=== PATIENT | female | born 1935 | race Caucasian/White ===

== ENCOUNTER 2019-09-10 14:02 | Observation (INO) | payer MEDICARE, OTHER, SELFPAY ==
[2019-09-10] VITALS (7 sets, daily range): BP systolic 145–198; BP diastolic 64–82; PULSE 51–81; RESP 15–18; TEMP 36.6–36.7; O2SAT 96–100; BMI 25.7
--- NOTE | 2019-09-10 14:18 | DI.CT.S_ITS ---
PROCEDURE: CT STROKE INDICATIONS: transient altered mental status, now resolved. TECHNIQUE: Noncontrast 4.5 mm thick angled axial sections acquired from the foramen magnum to the vertex, with coronal reformats. For radiation dose reduction, the following was used: automated exposure control, adjustment of mA and/or kV according to patient size. COMPARISON: None. FINDINGS: Image quality: Excellent. CSF spaces: Basal cisterns are patent. No extra-axial fluid collections. The ventricles are symmetric in size and shape. Brain: No intracranial bleeds or masses. There is cerebral volume loss for age, with resultant ventricular and sulcal prominence. There are periventricular and deep white matter chronic small vessel ischemic changes. There is intracranial internal carotid artery atherosclerosis. Skull and face: Calvarium and visualized facial bones appear intact, without suspicious lesions. Sinuses: Visualized sinuses and mastoids are clear. IMPRESSION: Unremarkable intracranial study for age, with brain parenchymal volume loss and chronic small vessel ischemic change seen. No acute intracranial hemorrhage is seen. If there is strong clinical suspicion for an acute stroke, please consider an MRI for further evaluation, as it is more sensitive (assuming that there is no contraindication to MRI). This study fulfills neurological imaging criteria for inclusion or exclusion of acute stroke therapies based on available published neurological guidelines. Dictated by: Ministerio Benedict M.D. on 09/10/2019 at 13:54 Approved by: Ministerio Benedict M.D. on 09/10/2019 at 13:55
[2019-09-10 14:26] LABS: Add Manual Diff / Slide Review NO; Basophils Absolute Auto 100 /uL (0-100); Basophils Percent Auto 0.9 % (0-2); Eosinophils Absolute Auto 200 /uL (0-450); Eosinophils Percent Auto 2.4 % (2-4); Hematocrit 37.3 % (36-46); Hemoglobin 12.5 g/dL (12.0-16.0); Lymphocytes Absolute Auto 2800 /uL (1100-4500); Lymphocytes Percent Auto 36.1 % (25-40); Mean Corpuscular HGB Conc 33.4 % (30-36); Mean Corpuscular Hemoglobin 29.4 PG (26-34); Mean Corpuscular Volume 88.1 fL (80-100); Monocytes Absolute Auto 800 /uL (0-900); Monocytes Percent Auto 10.6 % (3-14); Neutrophils Absolute Auto 3900 /uL (1500-7000); Platelet Count 329 X10^3/uL (150-400); Red Blood Cell Count 4.23 X10^6/uL (4.0-5.2); Red Cell Distribution Width 15.2 % (11.6-14.8); White Blood Cell Count 7.7 X10^3/uL (4.5-11.0)
[2019-09-10 14:29] LABS: Prothrombin Time 11.8 SECONDS (10.1-12.7)
[2019-09-10 14:32] LABS: PTT Partial Thromboplastin Tim 28 SECONDS (26.4-36.2)
[2019-09-10 14:34] LABS: Alanine Aminotransferase 12 IU/L (<35); Albumin 4.4 g/dL (3.5-5.0); Albumin Globulin Ratio 1.5 (1.0-2.8); Alkaline Phosphatase 50 U/L (38-126); Aspartate Aminotransferase 19 IU/L (14-36); BUN Creatinine Ratio 28.8 (6-22); Bilirubin Total 0.4 mg/dL (0.2-1.3); Blood Urea Nitrogen 21 mg/dL (7-17); Calcium 9.6 mg/dL (8.4-10.2); Carbon Dioxide 23 mmol/L (22-32); Chloride 104 mmol/L (98-107); Creatine Kinase 43 U/L (30-135); Estimated Glomerular Filt Rate > 60.0 mL/min (>60); Ethanol (ETOH) < 10 mg/dL; Globulin 2.9 g/dL (1.7-4.1); Glucose 98 mg/dL (80-110); HEMOLYSIS < 15 (0-50); Potassium 4.3 mmol/L (3.4-5.1); Sodium 137 mmol/L (137-145); Total Protein 7.3 g/dL (6.3-8.2)
--- NOTE | 2019-09-10 14:34 | ED_ITS ---
HPI - Neuro Symptoms/Deficit General Chief Complaint: Neuro Symptoms/Deficit Stated Complaint: loss of consciousness, uncontrolled talking Time Seen by Provider: 09/10/19 14:11 Source: patient Mode of arrival: Ambulatory History of Present Illness HPI Narrative: CC: I think I may have had a stroke. HPI: The patient was [place] with her on the highway and she suddenly did not respond to her was staring straight ahead and started talking in O[place]i and was unable to talk in Arabic-speaking or. From what she was doing. This entire episode lasted approximately 20 minutes. It happened approximately 30 minutes prior to coming into the emergency department. The patient denied any loss of consciousness. She has no history of having had seizures previous stroke myocardial infarction congestive heart failure COPD or asthma. She does admit to a history of diabetes mellitus and hypertension. She is on metformin for her diabetes. The patient stated that she also felt like she lost her voice and could not speak. She denied any chest pain irregular heartbeat or palpitations when this occurred. This is never happened to her before. She admits to being a former smoker does not drink alcohol use any drugs or use marijuana.. On Anticoagulants: No Related Data Home Medications Medication Instructions Recorded Confirmed ezetimibe-simvastatin 1 tab PO QPM 09/10/19 09/10/19 hydrochlorothiazide 25 mg DAILY 09/10/19 09/10/19 lisinopril 10 mg PO QAM 09/10/19 09/10/19 metformin 500 mg PO TID 09/10/19 09/10/19 metoprolol tartrate 25 mg PO BID 09/10/19 09/10/19 potassium chloride [Klor-Con 10] 10 meq PO DAILY 09/10/19 09/10/19 Allergies Allergy/AdvReac Type Severity Reaction Status Date / Time Penicillins Allergy Intermediate Rash Verified 09/11/19 07:22 Review of Systems Review of Systems Narrative: REVIEW OF SYSTEMS: CONSTITUTIONAL: She denies any fever chills or sweats. NEUROLOGICAL: She denies any history of seizures any headache numbness tingling paresthesias anesthesia is paresis or paralysis. She has had no loss of vision blind spots diplopia. EENT: She has had no nasal drainage sinus drainage or trouble swallowing. CARDIO-PULMONARY: She denies any shortness of breath cough chest pain Musculoskeletal: She denies any back pain. Gastrointestinal: She denies any abdominal pain nausea vomiting diarrhea change in bowel habits incontinence of urine or stool. Genital-Urinary: She denies any vaginal bleeding troubles urinating Dermatological: She denies any bleeding abnormalities bruising or rash. Patient History Surgical History H/O hysterectomy with oophorectomy (Acute) Family History Mother Old age Father Alcoholic dependence syndrome Social History household members: spouse Smoking Status: Former smoker alcohol intake: former Smoking Status: Former smoker Exam Narrative Exam Narrative: PHYSICAL EXAM: CONSTITUTIONAL: Awake, Alert, Oriented, Coherent, Cooperative in NAD. Does not appear toxic or ill. She appears to be embarrassed and angry that we are evaluating her and that this has occurred and she has to answer so many questions. HEAD: AT/NC EENT: PERRL, FROM of eyes, no discharge, no nystagmus no focal facial asymmetry. NOSE:No epistaxis or nasal drainage MOUTH:Oral mucosa is moist and pink, .. NECK: Supple, no obvious JVD, Trachea is midline without stridor, no palpable LN. SPINE: Palpationof the cervical, Thoracic, Lumbar or Sacral spine reveals no gross deformity or tenderness. No CVA tenderness. THORAX: No deformity, retractions, chest wall tenderness. LUNGS: Clear, symmetrical breath sounds without respiratory distress. HEART: Normal heart tones, regular rhythm and rate without murmur. ABDOMEN: Soft, non-tender, without guarding, rebound, rigidity or palpable mass. EXTREMITIES: No edema, deformity, tenderness or cyanosis. SKIN: No rash, bruising, petechiae or purpura. NEURO: Awake, alert, oriented, conversive, cranial nerves II-XII are symmetrical , moves all 4 extremities and is ambulatory. The patient has symmetrical strength symmetrical sensation no drift. No focal facial asymmetry, visual merchant are intact no slurred speech. The patient's NIH stroke scale on admission is 0 MENTAL HEALTH: Does not appear anxious or depressed. Initial Vital Signs Initial Vital Signs: Vital Signs Temperature 98.0 F 09/10/19 14:13 Pulse Rate 51 L 09/10/19 14:13 Respiratory Rate 18 09/10/19 14:13 Blood Pressure 198/82 H 09/10/19 14:13 Pulse Oximetry 100 09/10/19 14:13 Scores NIH Stroke Scale Level of Conciousness: Alert, keenly responsive Ask month/age: Answers both questions correctly. Open/close eyes, close hand: Performs both tasks correctly Best gaze horizontal: Normal Visual merchant: No visual loss Facial palsy: Normal symetrical movement Left arm drift: No drift for full 10 sec Right arm drift: No drift for full 10 sec Left leg drift: No drift for full 10 sec Right leg drift: No drift for full 10 sec Limb ataxia: Absent Sensory on face/arms/legs: Normal, no sensory loss Best language: No aphasia, normal Dysarthria: Normal Extinction or inattention: No abnormality Total NIH Stroke scale score: 0 Course Course Course Narrative: 3180: I discussed the patient with the hospitalist on-call. The patient's CT scan reveals no acute intracranial hemorrhage or pathology. The question is whether not the patient is having a TIA or a seizure. I informed the patient that her studies are normal but Dr. De La Torre suggested that I discussed the patient with the neurologist on-call at [facility] to get their recommendations. The patient may need to be admitted to the hospital for an MRI and vascular studies and possible EEG. The question is does the patient need to be admitted to perform these tests or can they be performed as an outpatient. The patient was informed,that we are sending all the information to [facility] neurologist to obtain their recommendations. 1715: I discussed the patient with Dr. Yannick Suarez the neurologist on-call at [facility] for a consult and he recommended that the patient be admitted to the hospital an MRI obtained, vascular studies obtained, monitoring of the patient, echocardiogram, and possible EEG. This may be an episode of hypoperfusion, possible seizure possible TIA. The patient at her age should be monitored observation status at minimum and further evaluated. The patient will be admitted observation status to Orders Ordered: Discontinued Medications Acetaminophen (Tylenol) 650 mg PO Q6HR PRN PRN Reason: Fever/Mild Pain (1-3) Dextrose (D50w) 25 gm IV PRN PRN; Protocol PRN Reason: Hypoglycemia Ezetimibe (Zetia) 10 mg PO BEDTIME QUE Last Admin: 09/10/19 20:57 Dose: Not Given Documented by: MARY ALICE Enoxaparin Sodium (Lovenox) 40 mg SUBCUT DAILY [facility] Last Admin: 09/11/19 08:05 Dose: 40 mg Documented by: NATASHA Hydrochlorothiazide (Hydrochlorothiazide) 25 mg PO DAILY [facility] Last Admin: 09/11/19 08:05 Dose: 25 mg Documented by: NATASHA Insulin Aspart (Novolog Flexpen) 0 unit SUBCUT ACHS [facility]; Protocol Last Admin: 09/11/19 16:55 Dose: Not Given Documented by: Admin: 09/11/19 12:25 Dose: Not Given Documented by: Admin: 09/11/19 08:05 Dose: Not Given Documented by: Admin: 09/10/19 20:56 Dose: Not Given Documented by: MARY ALICE Lisinopril (Zestril) 10 mg PO DAILY [facility] Last Admin: 09/11/19 08:05 Dose: 10 mg Documented by: NATASHA Magnesium Hydroxide (Milk Of Magnesia) 30 ml PO DAILY PRN PRN Reason: Constipation Metformin HCl (Glucophage) 500 mg PO TID [facility] Last Admin: 09/11/19 08:06 Dose: 500 mg Documented by: Admin: 09/10/19 20:20 Dose: 500 mg Documented by: MARY ALICE Metformin HCl (Glucophage) 500 mg PO TIDWM [facility] Last Admin: 09/11/19 16:55 Dose: 500 mg Documented by: Admin: 09/11/19 12:25 Dose: 500 mg Documented by: NATASHA Metoprolol Tartrate (Lopressor) 25 mg PO BID [facility] Last Admin: 09/11/19 08:05 Dose: 25 mg Documented by: Admin: 09/10/19 20:20 Dose: 25 mg Documented by: MARY ALICE Ondansetron HCl (Zofran) 4 mg IV Q8HR PRN PRN Reason: Nausea And Vomiting Potassium Chloride (Klor-Con M10) 10 meq PO DAILY [facility] Last Admin: 09/11/19 08:05 Dose: 10 meq Documented by: NATASHA Simvastatin (Zocor) 40 mg PO BEDTIME [facility] Last Admin: 09/10/19 20:20 Dose: 40 mg Documented by: MARY ALICE Vital Signs Vital signs: Vital Signs - 8 hr 09/10/19 14:13 09/10/19 14:36 Temperature 98.0 F Pulse Rate 51 L 57 L Respiratory Rate 18 15 Blood Pressure 198/82 H Blood Pressure [Left Arm] 182/74 H Pulse Oximetry 100 100 MDM - Neuro Symptoms/Deficit Medical Records Attestation: I reviewed the patient's medical records. Lab Data Attestation: I reviewed the patient's lab results. Result diagrams: 09/10/19 14:16 09/10/19 14:16 Labs: Lab Results 09/10/19 09/10/19 09/10/19 Range/Units 14:16 14:16 14:16 WBC 7.7 (4.5-11.0) X10^3/uL RBC 4.23 (4.0-5.2) X10^6/uL Hgb 12.5 (12.0-16.0) g/dL Hct 37.3 (36-46) % MCV 88.1 (80-100) fL MCH 29.4 (26-34) PG MCHC 33.4 (30-36) % RDW 15.2 H (11.6-14.8) % Plt Count 329 (150-400) X10^3/uL Neut % (Auto) 50.0 (50-75) % Lymph % (Auto) 36.1 (25-40) % [place] % (Auto) 10.6 (3-14) % Eos % (Auto) 2.4 (2-4) % Baso % (Auto) 0.9 (0-2) % Neut # (Auto) 3900 (6207-4576) /uL Lymph # (Auto) 2800 (8943-6546) /uL [place] # (Auto) 800 (0-900) /uL Eos # (Auto) 200 (0-450) /uL Baso # (Auto) 100 (0-100) /uL PT 11.8 (10.1-12.7) SECONDS INR 1.0 (0.9-1.3) APTT 28 (26.4-36.2) SECONDS Sodium 137 (137-145) mmol/L Potassium 4.3 (3.4-5.1) mmol/L Chloride 104 (98-107) mmol/L Carbon Dioxide 23 (22-32) mmol/L BUN 21 H (7-17) mg/dL Creatinine 0.73 (0.52-1.04) mg/dL Estimated GFR > 60.0 (>60) mL/min BUN/Creatinine Ratio 28.8 H (6-22) Glucose 98 (80-110) mg/dL Calcium 9.6 (8.4-10.2) mg/dL Total Bilirubin 0.4 (0.2-1.3) mg/dL AST 19 (14-36) IU/L ALT 12 (<35) IU/L Alkaline Phosphatase 50 (38-126) U/L Total Creatine Kinase 43 (30-135) U/L CK-MB (CK-2) TNP CK-MB (CK-2) Rel Index TNP Troponin I < 0.012 (0.01-0.034) ng/mL Total Protein 7.3 (6.3-8.2) g/dL Albumin 4.4 (3.5-5.0) g/dL Globulin 2.9 (1.7-4.1) g/dL Albumin/Globulin Ratio 1.5 (1.0-2.8) Prolactin (3.0-18.6) ng/mL Urine Color Urine Appearance Urine pH (4.5-8.0) Ur Specific [place] (1.000-1.035) Urine Protein (Negative) Urine Glucose (UA) (Negative) g/dL Urine Ketones (NEGATIVE) Urine Occult Blood (Negative) Urine Nitrate (Negative) Urine Bilirubin (NEGATIVE) Urine Urobilinogen (0.2) E.U./dL Ur Leukocyte Esterase (NEGATIVE) Urine RBC (0-5/HPF) Urine WBC (0-5/HPF) Ur Squamous Epith Cells (0-5/HPF) Urine Bacteria (None) Ur Culture Indicated? U Opiates 300ng/mL cut (Negative) Ur Oxycodone Screen (Negative) Urine Methadone Screen (Negative) Ur Barbiturates Screen (Negative) U Tricyclic Antidepress (Negative) Ur Phencyclidine Scrn (Negative) Ur Amphetamines Screen (Negative) U Methamphetamines Scrn (Negative) Ur MDMA Scrn (Ecstasy) (Negative) U Benzodiazepines Scrn (Negative) Urine Cocaine Screen (Negative) U Marijuana (THC) Screen (Negative) Ethyl Alcohol < 10 ( - 10) mg/dL 09/10/19 09/10/19 09/10/19 Range/Units 14:16 15:55 15:55 WBC (4.5-11.0) X10^3/uL RBC (4.0-5.2) X10^6/uL Hgb (12.0-16.0) g/dL Hct (36-46) % MCV (80-100) fL MCH (26-34) PG MCHC (30-36) % RDW (11.6-14.8) % Plt Count (150-400) X10^3/uL Neut % (Auto) (50-75) % Lymph % (Auto) (25-40) % [place] % (Auto) (3-14) % Eos % (Auto) (2-4) % Baso % (Auto) (0-2) % Neut # (Auto) (2236-3894) /uL Lymph # (Auto) (4565-2147) /uL [place] # (Auto) (0-900) /uL Eos # (Auto) (0-450) /uL Baso # (Auto) (0-100) /uL PT (10.1-12.7) SECONDS INR (0.9-1.3) APTT (26.4-36.2) SECONDS Sodium (137-145) mmol/L Potassium (3.4-5.1) mmol/L Chloride (98-107) mmol/L Carbon Dioxide (22-32) mmol/L BUN (7-17) mg/dL Creatinine (0.52-1.04) mg/dL Estimated GFR (>60) mL/min BUN/Creatinine Ratio (6-22) Glucose (80-110) mg/dL Calcium (8.4-10.2) mg/dL Total Bilirubin (0.2-1.3) mg/dL AST (14-36) IU/L ALT (<35) IU/L Alkaline Phosphatase (38-126) U/L Total Creatine Kinase (30-135) U/L CK-MB (CK-2) CK-MB (CK-2) Rel Index Troponin I (0.01-0.034) ng/mL Total Protein (6.3-8.2) g/dL Albumin (3.5-5.0) g/dL Globulin (1.7-4.1) g/dL Albumin/Globulin Ratio (1.0-2.8) Prolactin 15.6 (3.0-18.6) ng/mL Urine Color Yellow Urine Appearance Clear Urine pH 5.0 (4.5-8.0) Ur Specific [place] 1.025 (1.000-1.035) Urine Protein Negative (Negative) Urine Glucose (UA) Negative (Negative) g/dL Urine Ketones Negative (NEGATIVE) Urine Occult Blood Negative (Negative) Urine Nitrate Negative (Negative) Urine Bilirubin Negative (NEGATIVE) Urine Urobilinogen 0.2 (0.2) E.U./dL Ur Leukocyte Esterase Negative (NEGATIVE) Urine RBC 0-1/hpf (0-5/HPF) Urine WBC 0-1/hpf (0-5/HPF) Ur Squamous Epith Cells 1-5 /hpf (0-5/HPF) Urine Bacteria None seen (None) Ur Culture Indicated? Cult not indicated U Opiates 300ng/mL cut Negative (Negative) Ur Oxycodone Screen Negative (Negative) Urine Methadone Screen Negative (Negative) Ur Barbiturates Screen Negative (Negative) U Tricyclic Antidepress Negative (Negative) Ur Phencyclidine Scrn Negative (Negative) Ur Amphetamines Screen Negative (Negative) U Methamphetamines Scrn Negative (Negative) Ur MDMA Scrn (Ecstasy) Negative (Negative) U Benzodiazepines Scrn Negative (Negative) Urine Cocaine Screen Negative (Negative) U Marijuana (THC) Screen Negative (Negative) Ethyl Alcohol ( - 10) mg/dL ECG Data Attestation: I personally reviewed and interpreted this ECG as follows: Interpretation: The patient's EKG reveals a sinus bradycardia with a ventricular rate of 58 at 2:20 p.m.. Intervals appear to be normal except the QRS is slightly prolonged at 128 milliseconds. The patient has a left axis deviation. Her EKG is consistent with a left bundle branch block. There are no acute diagnostic ST segments signs no Sgarboza criteria. Discharge Plan Departure Patient Disposition: Admitted as Observation Clinical Impression: Essential hypertension Transient cerebral ischemia Qualifiers: Transient cerebral ischemia type: unspecified Qualified Code(s): G45.9 - Transient cerebral ischemic attack, unspecified Type II diabetes mellitus Qualifiers: Diabetes mellitus superintendent terminal insulin use: without superintendent terminal use Diabetes mellitus complication status: without complication Qualified Code(s): E11.9 - Type 2 diabetes mellitus without complications Discharge Date/Time: 09/10/19 17:45 Instructions: Diabetes and Cardiovascular Disease: What's the Link?, Reducing Your Risk of Heart Disease When You Have Diabetes, Transient Ischemic Attack, Type 2 Diabetes, DI for Transient Ischemic Attack Admit Date/Time: 09/10/19 17:12 Admit Provider: Romero De La Torre
[2019-09-10 14:45] LABS: Troponin I < 0.012 ng/mL (0.01-0.034)
[2019-09-10 14:50] LABS: Prolactin 15.6 ng/mL (3.0-18.6)
[2019-09-10 16:02] LABS: Ur Creatinine Normal (Normal); Ur Specific Gravity Normal (Normal); Urine pH Normal (Normal)
[2019-09-10 16:03] LABS: UR Morphine/Opiate cutoff 300 Negative (Negative); Urine Amphetamines Negative (Negative); Urine Barbiturates Negative (Negative); Urine Benzodiazepines Negative (Negative); Urine Cocaine Negative (Negative); Urine MDMA Negative (Negative); Urine Methadone Negative (Negative); Urine Methamphetamines Negative (Negative); Urine Oxycodone Negative (Negative); Urine Phencyclidine Negative (Negative); Urine Tetrahydrocannabinol Negative (Negative); Urine Tricyclic Antidepressant Negative (Negative)
[2019-09-10 17:18] LABS: Bacteria Urine None Seen
[2019-09-10 17:27] LABS: Appearance Urine UA CLEAR; Bilirubin Urine UA NEGATIVE (NEGATIVE); Color Urine UA YELLOW; Glucose Urine UA NEGATIVE (Negative); Ketones Urine UA NEGATIVE (NEGATIVE); Leukocyte Esterase Urine UA NEGATIVE (NEGATIVE); Nitrite Urine UA NEGATIVE (Negative); Occult Blood Urine UA NEGATIVE (Negative); Protein Urine UA NEGATIVE (Negative); Specific Gravity Urine UA 1.025 (1.000-1.035); Urobilinogen Urine UA 0.2 E.U./dL (0.2)
[2019-09-10 17:33] LABS: Culture Indicated Urine Cult Not Indicated; RBC Urine 0-1/HPF (0-5/HPF); Squamous Epithelial Cell Urine 1-5 /HPF (0-5/HPF); WBC Urine 0-1/HPF (0-5/HPF)
--- NOTE | 2019-09-10 18:33 | DI.MRI.S_ITS ---
PROCEDURE: MR STROKE Pre- and post-contrast brain MRI, non-contrast brain MR angiogram, pre- and postcontrast neck MR angiogram INDICATIONS: r/o CVA, brain lesion TECHNIQUE: Brain: Noncontrast axial T1 spin echo, axial T2 fast spin echo, sagittal and axial FLAIR, coronal T2 fast spin echo, axial gradient echo, axial diffusion and ADC through the brain. After the administration of contrast, axial 3D VIBE of the cranial vasculature and brain. Brain MRA: Non-contrast 3-D time of flight MR angiogram, with multiple bvknyyb-ncfpzdebj-gqtkboiznc (MIP) reformats performed. Neck MRA: Axial and sagittal TruFISP through the neck. Coronal dynamic MR angiogram during administration of contrast in the arterial and venous phases, with 3-dimenstional vewelwg-nbajwtsff-frhbrrjlyf (MIP) reformats constructed from subtraction images. COMPARISON: [facility], CT, CT STROKE, 09/10/2019, 14:33. FINDINGS: Image quality: Significant motion artifacts are present. BRAIN: CSF spaces: Ventricles are normal in size and shape. Basal cisterns are patent. No extra-axial fluid collections. Brain: No intracranial bleeds or mass effects. Basilio-white matter interface is normal. There is mild cerebral volume loss. Mild periventricular white matter chronic small vessel ischemic changes are noted. Diffusion weighted images show no acute ischemic insults. Brainstem appears normal. Normal intravascular flow voids are present. No abnormal intracranial enhancement. Skull and face: Calvarial marrow signal is normal. Orbits appear normal. Sinuses: Sinuses and mastoids are clear. BRAIN MR ANGIOGRAM: Anterior circulation: Intracranial internal carotid arteries are normal in size and enhancement. The flow within the paired anterior cerebral arteries is normal and symmetric. The flow within the middle cerebral arteries is normal and symmetric. The anterior communicating artery is seen. No stenoses, occlusions, or aneurysms. Posterior circulation: The visualized portions of the vertebral arteries demonstrate normal caliber.Possible fenestrated basilar artery. On the contrast enhanced MRA of the neck, cannot confirm fenestration of basilar artery. origin of the left posterior cerebral artery. The flow within the posterior cerebral arteries is normal and symmetric. No stenoses, occlusions, or aneurysms. NECK MR ANGIOGRAM: Carotids: Great vessels demonstrate a conventional anatomy as they arise from the aortic arch. The origins of the common carotid arteries appear patent. The calibers and courses of both common carotid arteries are normal. The bifurcation regions appear normal bilaterally. The internal carotid arteries demonstrate normal course and caliber. Posterior circulation: The origins of the vertebral arteries appear patent. More superior portions of both vertebral arteries demonstrate normal course and caliber, and join to form a normal appearing basilar artery. Miscellaneous: Subclavian arteries appear patent. Pre-contrast images through the neck show no soft tissue abnormalities. IMPRESSION: BRAIN MRI: 1. No acute intracranial abnormalities. 2. Cerebral volume loss and chronic microvascular ischemic changes. BRAIN MR ANGIOGRAM: 1. No high-grade stenosis or occlusion in anterior or posterior circulations. 2. Possible fenestrated basilar artery versus artifacts. 3. origin of the left posterior cerebral artery. NECK MR ANGIOGRAM: Normal neck MR angiogram. Dictated by: Mitzi Castle M.D. on 09/11/2019 at 15:57 Approved by: Mitzi Castle M.D. on 09/11/2019 at 16:14
--- NOTE | 2019-09-10 19:44 | P.HP_ITS ---
History of Present Illness History of Present Illness Date Patient Seen: 09/10/19 Time Patient Seen: 19:30 Date of Onset of Symptoms: 09/10/19 Chief complaint: loss of consciousness, uncontrolled talking Narrative: Hortensia Holley is a very pleasant 83-year-old female who was in her usual state of health today and a passenger while in a vehicle with her , was observed to be speaking in Citizen Of [place], her [place] language. Patient only recalls that her was telling her to speak Swazi and that she was speaking in a very low voice. She denies any visual changes, headaches, fever, sweats or chills, dizziness, nausea or vomiting, she does have a history of diabetes that is well controlled, denies difficulty swallowing, denies abdominal pain, dysuria, chest pain, shortness of breath, or diabetic polyneuropathy of her extremities. She denies starting or stopping any prescription medications, has denied past history of having a stroke or TIA. 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 By the time she reached the floor, she had a NIH score of 0. Patient History Surgical History H/O hysterectomy with oophorectomy (Acute) Family & Social History Family History Mother Old age Father Alcoholic dependence syndrome Social History: household members spouse Prior Living Arrangements House Safety & Behavioral: Feels Safe in Current Yes Environment Been Physically Hurt or No Threatened By a Person Suicidal Ideation Description None Suicide Plan Description No Plan Tobacco & Substance use: Tobacco type cigarettes Smoking Status Former smoker alcohol intake former Meds Home Medications and Allergies Home Medications Medication Instructions Recorded Confirmed Type ezetimibe-simvastatin 1 tab PO QPM 09/10/19 09/10/19 History hydrochlorothiazide 25 mg DAILY 09/10/19 09/10/19 History lisinopril 10 mg PO QAM 09/10/19 09/10/19 History metformin 500 mg PO TID 09/10/19 09/10/19 History metoprolol tartrate 25 mg PO BID 09/10/19 09/10/19 History potassium chloride [Klor-Con 10] 10 meq PO DAILY 09/10/19 09/10/19 History Allergies Allergy/AdvReac Type Severity Reaction Status Date / Time Penicillins AdvReac Severe Rash Verified 09/10/19 20:12 Review of Systems Review of Systems ROS: Yes All systems reviewed with the patient and are negative except as otherwise documented Exam Vital Signs (past 8 hours): - 09/10/19 14:13 09/10/19 14:36 09/10/19 15:45 Temperature 98.0 F Pulse Rate 51 L 57 L 57 L Respiratory Rate 18 15 18 Blood Pressure 198/82 H Blood Pressure [Left Arm] 182/74 H 145/64 H Pulse Oximetry 100 100 96 09/10/19 17:21 09/10/19 18:16 09/10/19 18:32 Temperature 97.8 F Pulse Rate 64 81 Respiratory Rate 18 18 Blood Pressure 149/80 H Blood Pressure [Left Arm] 147/69 H Pulse Oximetry 98 99 99 Oxygen Delivery Method Room Air Narrative Exam Narrative: Gen: Alert, oriented, well-developed 83 y.o. female, appears comfortable and reading HEENT: normocephalic, atraumatic, conjunctiva clear, sclera non-icteric, oral mucosa pink and moist Neck: supple, full ROM, no JVD, trachea is midline Resp: Lungs CTA, non-labored breathing CV: RRR, no murmur or rubs Abd: soft, non-tender, normoactive BTs Skin: no lesions or rashes, dry and intact Neuro: Alert and oriented X 4 w/no focal deficits. Speech is clear and coherent. Extremities: moves all 4 extremities, is ambulatory, negative Pari?s sign Psyche: normal mood and affect. Objective Labs Result Diagrams: 09/10/19 14:16 09/10/19 14:16 Labs: Laboratory Results - last 24 hr 09/10/19 09/10/19 09/10/19 14:16 14:16 14:16 WBC 7.7 RBC 4.23 Hgb 12.5 Hct 37.3 MCV 88.1 MCH 29.4 MCHC 33.4 RDW 15.2 H Plt Count 329 Neut % (Auto) 50.0 Lymph % (Auto) 36.1 Linn % (Auto) 10.6 Eos % (Auto) 2.4 Baso % (Auto) 0.9 Neut # (Auto) 3900 Lymph # (Auto) 2800 Linn # (Auto) 800 Eos # (Auto) 200 Baso # (Auto) 100 PT 11.8 INR 1.0 APTT 28 Sodium 137 Potassium 4.3 Chloride 104 Carbon Dioxide 23 BUN 21 H Creatinine 0.73 Estimated GFR > 60.0 BUN/Creatinine Ratio 28.8 H Glucose 98 Calcium 9.6 Total Bilirubin 0.4 AST 19 ALT 12 Alkaline Phosphatase 50 Total Creatine Kinase 43 CK-MB (CK-2) TNP CK-MB (CK-2) Rel Index TNP Troponin I < 0.012 Total Protein 7.3 Albumin 4.4 Globulin 2.9 Albumin/Globulin Ratio 1.5 Prolactin Urine Color Urine Appearance Urine pH Ur Specific Stafford Urine Protein Urine Glucose (UA) Urine Ketones Urine Occult Blood Urine Nitrate Urine Bilirubin Urine Urobilinogen Ur Leukocyte Esterase Urine RBC Urine WBC Ur Squamous Epith Cells Urine Bacteria Ur Culture Indicated? U Opiates 300ng/mL cut Ur Oxycodone Screen Urine Methadone Screen Ur Barbiturates Screen U Tricyclic Antidepress Ur Phencyclidine Scrn Ur Amphetamines Screen U Methamphetamines Scrn Ur MDMA Scrn (Ecstasy) U Benzodiazepines Scrn Urine Cocaine Screen U Marijuana (THC) Screen Ethyl Alcohol < 10 09/10/19 09/10/19 09/10/19 14:16 15:55 15:55 WBC RBC Hgb Hct MCV MCH MCHC RDW Plt Count Neut % (Auto) Lymph % (Auto) [place]inn % (Auto) Eos % (Auto) Baso % (Auto) Neut # (Auto) Lymph # (Auto) Linn # (Auto) Eos # (Auto) Baso # (Auto) PT INR APTT Sodium Potassium Chloride Carbon Dioxide BUN Creatinine Estimated GFR BUN/Creatinine Ratio Glucose Calcium Total Bilirubin AST ALT Alkaline Phosphatase Total Creatine Kinase CK-MB (CK-2) CK-MB (CK-2) Rel Index Troponin I Total Protein Albumin Globulin Albumin/Globulin Ratio Prolactin 15.6 Urine Color Yellow Urine Appearance Clear Urine pH 5.0 Ur Specific [place] 1.025 Urine Protein Negative Urine Glucose (UA) Negative Urine Ketones Negative Urine Occult Blood Negative Urine Nitrate Negative Urine Bilirubin Negative Urine Urobilinogen 0.2 Ur Leukocyte Esterase Negative Urine RBC 0-1/hpf Urine WBC 0-1/hpf Ur Squamous Epith Cells 1-5 /hpf Urine Bacteria None seen Ur Culture Indicated? Cult not indicated U Opiates 300ng/mL cut Negative Ur Oxycodone Screen Negative Urine Methadone Screen Negative Ur Barbiturates Screen Negative U Tricyclic Antidepress Negative Ur Phencyclidine Scrn Negative Ur Amphetamines Screen Negative U Methamphetamines Scrn Negative Ur MDMA Scrn (Ecstasy) Negative U Benzodiazepines Scrn Negative Urine Cocaine Screen Negative U Marijuana (THC) Screen Negative Ethyl Alcohol Assessment & Plan Assessment & Plan narrative: Ms Holley will be placed into observation for a workup of a suspected TIA Suspected TIA secondary to language abnormality -patient will undergo an echocardiogram and a MRI of the head and neck on September 10 -blood pressure was quite high on presentation to the emergency department with a systolic of almost 200, currently it is 149 -cardiac telemetry -neuro checks -patient will likely need to be further evaluated by neurology in the case that her tests and imaging prove out negative for TIA for a new onset seizure dis order Essential hypertension, acute, present on admission -she will require blood pressure checks and vital signs q.4 hours, allow for permissive hypertension in the setting a potential CVA -she takes a low dose of lisinopril 10 mg in the morning -continue home dose of metoprolol tartrate 25 mg p.o. b.i.d. and hold for hypotension parameters Diabetes type 2, controlled and chronic -patient states her last A1c was 6.0 as of early July -she was continued on her oral metformin and initiated on low-dose insulin correctional scale -Glucose on admission was 98 Hyperlipidemia, chronic and stable -continue home dose of ezetimibe 10 mg po daily -home dose of simvastatin raised to 40 mg po daily Consults: none Patient is observation status as her stay is not likely to exceed 2 midnights. FEN: IV heplock, carb control diet, BMP in the am. VTE prophylaxis: Bilateral SCDs Dispo: Likely d/c to homew/possible follow-up neurology Code Status: DNR/DNI as discussed with patient COVID-19 COVID-19 status: Not tested Quality VTE Deep Vein Thrombosis/Pulmonary Embolism Present on Admission: No
[2019-09-10] MEDS: METOPROLOL IR 25 MG TABLET PO (20:20)
[2019-09-10] MEDS: METFORMIN HCL 500 MG TABLET PO (20:20)
[2019-09-10] MEDS: SIMVASTATIN 40 MG TABLET PO (20:20)
--- NOTE | 2019-09-10 21:48 | PC.NURSE ---
Pt is A and O x 4, VSS on tele with Afib, HR 60 - 99. Fidgity. Pulled out IV. Has a new one. Pt's lower dentures and her entire purse and wallet and cell phone went home with spouse. Pt has her upper dentures in her mouth. Other VS S. NIH= 0. Arrived on unit at 1800. Decreased appetite and blood glucose at 2030 = 104, no coverage.
[2019-09-11] VITALS (10 sets, daily range): BP systolic 121–150; BP diastolic 38–69; PULSE 52–75; RESP 16–18; TEMP 36.4–37.2; O2SAT 93–97
[2019-09-11] MEDS: hydroCHLOROthiazide 25 MG TABLET PO (08:05)
[2019-09-11] MEDS: POTASSIUM CHLORIDE 10 MEQ TAB PO (08:05)
[2019-09-11] MEDS: lisinopriL 10 MG TABLET PO (08:05)
[2019-09-11] MEDS: ENOXAPARIN 40 MG/0.4 ML SYRINGE SUBCUT (08:05)
[2019-09-11] MEDS: METOPROLOL IR 25 MG TABLET PO (08:05)
[2019-09-11] MEDS: METFORMIN HCL 500 MG TABLET PO ×3 (08:06→16:55)
--- NOTE | 2019-09-11 08:51 | CM.DANOTE ---
DCP: Case received, EMR reviewed and met with patient. Introduced self and role. Was able to meet with patient in her room and obtain information regarding her baseline activity level and living situation. DCP assessment completed with information currently available. Patient is an 83 year old female who admitted yesterday afternoon to the care of the hospitalist team. PCP: GERALD Caldera. Payer: confirmed: Medicare/[employer] for Life. Patient came to the hospital via private vehicle secondary to her having some difficulty with speaking, and confusion. She is here being worked up for possible seizures, TIA. She is having an MRI today. Met with patient in her room. She was sitting up in bed, alert and oriented, pleasant. She is from [place], speaks [place], and other languages. She was speaking Filipino with this employment case manager. She resides in [place] with her , Vincent. She is independent at baseline. Patient stated, she does remember incident, with having difficulties speaking Filipino. 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 She resided in [place], as well as [place] and [place]. Patient has lived in her home in [place] for approximately 4 years. P: DCP to continue to follow and be available for any resources needed. She will be having an MRI today. She should be able to go home when she is medically stable. Jessica Wilson RN/Fine Arts Teacher
--- NOTE | 2019-09-11 10:51 | DI.ECHO.S_ITS ---
Version 2 Echocardiogram Report + + :Name: GUNJAN BOATENG Study Date: 09/11/2019 Height: 63 in : :Hospital Weight: 132 lb : : Gender: Female BSA: 1.6 m2 : :: 1935 Age: 83 yrs BP: 149/80 mmHg: :Reason For Study: TIA : :Ordering Physician: Mark : :Hospitalist Performed By: Lynne Page : :Referring: YEN MASTERSON : + + Interpretation Summary The left ventricle is normal in size and wall thickness. Left ventricular systolic function is normal without focal wall motion abnormalities. The ejection fraction is estimated to be 55-60%. Diastolic parameters suggest probable normal left ventricular diastolic function and normal filling pressures. The right ventricle is normal in size and function. The right ventricular systolic pressure is estimated to be at least 34 mmHg based on an estimated right atrial pressure of 3 mm Hg. The left atrium is severely dilated. The right atrium is mild to moderately dilated. There is no significant valvular heart disease. The aortic root is normal size. No obvious source for cardioembolic TIA. Procedure: A two-dimensional transthoracic echocardiogram with color flow and Doppler was performed. The study quality was technically adequate. There is no prior echocardiogram noted for this patient. The heart rate ranged between 50-58 bpm during the study. Left Ventricle: The left ventricle is normal in size and wall thickness. Left ventricular systolic function is normal without focal wall motion abnormalities. The ejection fraction is estimated to be 55-60%. Septal motion is consistent with post-operative state. Diastolic parameters suggest probable normal left ventricular diastolic function and normal filling pressures. Right Ventricle: The right ventricle is normal in size and function. Atria: The left atrium is severely dilated. The right atrium is mild to moderately dilated. There is no Doppler evidence for an interatrial shunt. Mitral Valve: The mitral valve leaflets appear mildly thickened, but open well. There is mild mitral annular calcification. The mitral valve chordae are thickened and/or calcified. There is trace mitral regurgitation. Aortic Valve: The aortic valve is trileaflet. The aortic valve opens well. No aortic regurgitation is present. Tricuspid Valve: The tricuspid valve is normal in structure and function. There is mild tricuspid regurgitation. The right ventricular systolic pressure is estimated to be at least 34 mmHg based on an estimated right atrial pressure of 3 mm Hg. Pulmonic Valve: The pulmonic valve is not well visualized. There is no significant valvular heart disease. Great Vessels: The aortic root is normal size. The ascending aorta is normal in size. The pulmonary is not well visualized. The IVC is of normal diameter and collapses greater than 50% with a sniff. This suggests a low right atrial pressure of 3 mm Hg. Pericardium/ Pleura There is no pericardial effusion. There is an anterior echo-free space consistent with a fat pad. There is no pleural effusion. MMode/2D Measurements & Calculations LVIDd: 4.9 cm LVOT diam: 1.8 cm LVIDs: 3.7 cm Ao root diam: 2.6 cm FS: 26.0 % asc Aorta Diam: 2.9 cm IVSd: 0.73 cm LVPWd: 0.84 cm LV gutierrez. diameter/BSA (cm/m^2): 3.1 LV sys. diameter/BSA (cm/m^2): 2.3 LA A2 area: 25.3 cm2 RA long axis: 5.2 cm LA A4 area: 26.4 cm2 RA area: 18.7 cm2 LA length (vol): 6.1 cm RA vol: 56.9 ml LA vol: 93.2 ml RA : 35.1 ml/m2 LA vol index: 57.5 ml/m2 IVC diam: 2.0 cm RVD1 (basal): 4.2 cm TAPSE: 2.6 cm Doppler Measurements & Calculations Ao V2 max: 161.9 cm/sec LVOT Max Mike: 104.2 cm/sec Ao V2 mean: 114.7 cm/sec LV V1 max P.3 mmHg Ao max P.5 mmHg LV V1 VTI: 26.2 cm Ao mean P.7 mmHg ASAF(I,D): 1.6 cm2 Ao V2 VTI: 43.2 cm ASAF(V,D): 1.7 cm2 sev ratio: 0.61 ASAF indexed to BSA (cm^2/m^2): 1.0 MV E max mike: 104.2 cm/sec TR max mike: 278.6 cm/sec MV A max mike: 79.4 cm/sec TR max P.0 mmHg MV E/A: 1.3 PA V2 max: 84.4 cm/sec Med Peak E' Mike: 8.7 cm/sec PA V2 mean: 51.7 cm/sec E/E' med: 12.0 PA mean P.2 mmHg Lat Peak E' Mike: 9.7 cm/sec PA Accel Time: 0.04 sec E/E' lat: 10.7 E/e' average: 11.4 MV dec time: 0.18 sec SV(LVOT): 70.2 ml Reading Physician:10:41 AM
--- NOTE | 2019-09-11 11:55 | PC.NURSE ---
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
--- NOTE | 2019-09-11 16:03 | PC.NURSE ---
Addendum entered by Saira Zazueta R.N. 09/11/19 19:18: IV DC'd to RFA, pressure drsg applied. Tele removed. Pt assisted into wheelchair to ER entrance, to be driven home by her spouse. Addendum entered by Saira Zazueta R.N. 09/11/19 19:16: DC orders written by Dr Saucedo. All DC paperwork & instructions given to patient with spouse sitting in recliner listening. Pt denies questions, aware to follow up with her primary P.Tracy Caldera and that Dr Saucedo ordered outpatient cardiac monitoring. Original Note: Evening note: Hortensia brought back from MRI, she expresses anxiety during/after MRI. Her VS are stable, tele back on monitor. She denies pain, requested black tea. Awaiting Dr to follow up regarding MRI results, she told me she is hopeful to go home this afternoon. Ambulated in room with steady gait, reminded to call staff if she needs OOB.
--- NOTE | 2019-09-12 07:54 | PM.DS.1 ---
History of Present Illness History of Present Illness Date Patient Seen: 09/11/19 Chief complaint: loss of consciousness, uncontrolled talking Narrative: Hortensia Holley is a very pleasant 83-year-old female who was in her usual state of health today and a passenger while in a vehicle with her , was observed to be speaking in [place], her [place] language. Patient only recalls that her was telling her to speak Nepali and that she was speaking in a very low voice. She denies any visual changes, headaches, fever, sweats or chills, dizziness, nausea or vomiting, she does have a history of diabetes that is well controlled, denies difficulty swallowing, denies abdominal pain, dysuria, chest pain, shortness of breath, or diabetic polyneuropathy of her extremities. She denies starting or stopping any prescription medications, has denied past history of having a stroke or TIA. 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 By the time she reached the floor, she had a NIH score of 0. Discharge Providers Provider Date of admission: 09/10/19 17:12 Discharge Date: 09/11/19 Discharge provider: Elinor Saucedo MD Summary Hospital Course Discharge Diagnosis: 1. Probable TIA 2. Hyperlipidemia 3. Hypertension 4. Type 2 diabetes Hospital Course: Patient was admitted to the hospital for presumed TIA. She had an episode of expressive aphasia, patient also was speaking in [place] which is her [place] tongue after admission she had no difficulty with her speech. She had no weakness. She had no facial droop. The patient's NIH score remained 0. She underwent a head MRI which was negative for an acute stroke. There was no significant intracranial lesions noted. Patient did have an echocardiogram done prior to discharge however the result is still pending at this time. Patient was placed on an aspirin and deemed appropriate for discharge and arrangements were made for her to be discharged home. Status at Discharge Cognitive/behavioral status at discharge: oriented Functional status at discharge: independent ambulation Overall status at discharge: patient is back to baseline Time Spent with Patient Time spent: Less than 30 minutes Time spent discussing smoking cessation with patient: 3 to 10 minutes Exam Vital Signs (past 8 hours): Oxygen Delivery Method Room Air Oxygen Flow Rate 0 Narrative Exam Narrative: Pleasant female in no acute distress Lungs: Clear to auscultation Cardiac exam: Regular rate and rhythm normal S1-S2 Abdomen: Soft nontender Extremities: No edema Neuro exam: Nonfocal Objective Labs Result Diagrams: 09/10/19 14:16 09/10/19 14:16 Discharge Plan Discharge Plan Patient Disposition: Home Discharge comment: Out patient Zoll Monitor to look for arrhythmias Discharge orders & Medications Prescriptions: Continued metformin 500 mg Tablet 500 mg PO TID RF: 0 lisinopril 10 mg Tablet 10 mg PO QAM RF: 0 hydrochlorothiazide 25 mg Tablet 25 mg DAILY RF: 0 ezetimibe-simvastatin 10-40 mg Tablet 1 tab PO QPM RF: 0 metoprolol tartrate 25 mg Tablet 25 mg PO BID RF: 0 potassium chloride [Klor-Con 10] 10 mEq tablet extended release 10 meq PO DAILY RF: 0 Diet/Activity/Treatments Diet: Low-sodium and Low-cholesterol Activity: TOLERATED Visit Report/Discharge Packet Instructions: Diabetes and Cardiovascular Disease: What's the Link?, Reducing Your Risk of Heart Disease When You Have Diabetes, Transient Ischemic Attack, Type 2 Diabetes, DI for Transient Ischemic Attack Visit Report Forms: Patient Portal/API, Stroke Signs & Symptoms Discharge Data Attending Provider: Romero De La Torre Admit Date/Time: 09/10/19 17:12 Discharges patient from system. Discharge Date/Time: 09/11/19 19:19 Quality VTE Deep Vein Thrombosis/Pulmonary Embolism Present on Admission: No
== END 2019-09-11 19:19 | disposition home or self-care (01) ==
LOC: ED 14:52 → AC 17:13
PROVIDERS: Admitting Provider Internal Medicine; Emergency Provider Emergency Medicine; Referring Provider Emergency Medicine; Visit Provider Internal Medicine
DX: R29.818 Other symptoms and signs involving the nervous system (principal); R47.01 Aphasia; R55 Syncope and collapse; I10 Essential (primary) hypertension; E11.9 Type 2 diabetes mellitus without complications; Z79.84 Long term (current) use of oral hypoglycemic drugs; E78.5 Hyperlipidemia, unspecified
CPT/HCPCS: 36415; 70450; 70548; 70553; 80053; 80305; 80320; 81001; 82550; 82962; 84146; 84484; 85025; 85610; 85730; 93005; 93306; 96372; 99285; G0378; J1650

== ENCOUNTER 2020-05-04 11:07 | Emergency (ER) | payer MEDICARE, OTHER, SELFPAY ==
[2019-09-10 18:06] VITALS: BMI 25.7
[2020-05-04] VITALS (9 sets, daily range): BP systolic 142–165; BP diastolic 60–71; PULSE 47–60; RESP 16–26; TEMP 36.6; O2SAT 77–100; BMI 23.3
[2020-05-04 11:38] LABS: Add Manual Diff / Slide Review NO; Basophils Absolute Auto 100 /uL (0-100); Basophils Percent Auto 0.9 % (0-2); Eosinophils Absolute Auto 100 /uL (0-450); Eosinophils Percent Auto 1.4 % (2-4); Hematocrit 37.8 % (36-46); Hemoglobin 12.3 g/dL (12.0-16.0); Lymphocytes Absolute Auto 1800 /uL (1100-4500); Lymphocytes Percent Auto 23.1 % (25-40); Mean Corpuscular HGB Conc 32.6 % (30-36); Mean Corpuscular Hemoglobin 29.2 PG (26-34); Mean Corpuscular Volume 89.6 fL (80-100); Monocytes Absolute Auto 600 /uL (0-900); Monocytes Percent Auto 8.1 % (3-14); Neutrophils Absolute Auto 5300 /uL (1500-7000); Neutrophils Percent Auto 66.5 % (50-75); Platelet Count 336 X10^3/uL (150-400); Red Blood Cell Count 4.21 X10^6/uL (4.0-5.2); Red Cell Distribution Width 15.6 % (11.6-14.8); White Blood Cell Count 7.9 X10^3/uL (4.5-11.0)
[2020-05-04 11:39] LABS: INR 1.5 (0.9-1.3); Prothrombin Time 17.4 SECONDS (10.1-12.7)
[2020-05-04 11:41] LABS: PTT Partial Thromboplastin Tim 33 SECONDS (26.4-36.2)
[2020-05-04 11:42] LABS: Alanine Aminotransferase 16 IU/L (<35); Albumin 4.4 g/dL (3.5-5.0); Albumin Globulin Ratio 1.5 (1.0-2.8); Alkaline Phosphatase 48 U/L (38-126); Aspartate Aminotransferase 25 IU/L (14-36); BUN Creatinine Ratio 22.1 (6-22); Bilirubin Total 0.3 mg/dL (0.2-1.3); Blood Urea Nitrogen 17 mg/dL (7-17); Calcium 9.1 mg/dL (8.4-10.2); Carbon Dioxide 23 mmol/L (22-32); Chloride 106 mmol/L (98-107); Estimated Glomerular Filt Rate > 60.0 mL/min (>60); Glucose 115 mg/dL (80-110); HEMOLYSIS < 15 (0-50); Lipase 202 U/L (23-300); Potassium 3.8 mmol/L (3.4-5.1); Sodium 137 mmol/L (137-145); Total Protein 7.4 g/dL (6.3-8.2)
--- NOTE | 2020-05-04 11:48 | DI.CT.S_ITS ---
PROCEDURE: CT ABDOMEN PELVIS W CON INDICATIONS: abd pain x weeks TECHNIQUE: After the administration of intravenous contrast, 5 mm thick sections acquired from the diaphragm to the symphysis. 5 mm coronal and sagittal reformats were acquired. For radiation dose reduction, the following was used: automated exposure control, adjustment of mA and/or kV according to patient size. COMPARISON: None. FINDINGS: Image quality: Excellent. Exam was performed in the late arterial phase. ABDOMEN: Lung bases: Lung bases are clear. Heart size is normal. Solid organs: Liver is normal in size and enhancement. There is mild intrahepatic ductal dilation. Gallbladder is surgically absent. The common bile duct measures 11 millimeters in diameter. Pancreas enhances normally. Spleen is normal in size and enhancement. No adrenal nodules. Kidneys demonstrate normal size and enhancement, without hydronephrosis. Peritoneum and bowel: Stomach demonstrates questionable wall thickening although evaluation is limited given nondistention. Bowel loops demonstrate normal wall thickness and caliber. No free fluid or air. Moderate stool burden. No evidence of appendicitis. Scattered sigmoid colon diverticulosis without evidence of diverticulitis. Nodes and vessels: No retroperitoneal or mesenteric adenopathy by size criteria. Aorta and inferior vena cava are normal in size. Miscellaneous: No ventral hernias. PELVIS: Genitourinary: Bladder wall thickness is normal. Miscellaneous: Small fat containing bilateral inguinal hernias. Bones: No suspicious bony lesions. No vertebral body compression fractures. IMPRESSION: Questionable wall thickening of the stomach is favored to be due to nondistention, however gastritis is not completely excluded. Moderate stool burden. Diverticulosis without evidence of diverticulitis. Mild intrahepatic ductal dilation and prominence of the common bile duct measuring 11 millimeters. Although this may be within normal limits given cholecystectomy, recommend correlation with lab values to exclude obstruction. Dictated by: Tyrone Pennington D.O. on 05/04/2020 at 11:35 Approved by: Tyrone Pennington D.O. on 05/04/2020 at 11:45
--- NOTE | 2020-05-04 11:58 | ED_ITS ---
HPI - Abdominal Pain <STEPHANIE White - Last Filed: 05/04/20 13:51> General Chief Complaint: Abdominal Pain Stated Complaint: stomach ache Time Seen by Provider: 05/04/20 11:24 Source: patient Mode of arrival: Ambulatory Limitations: no limitations History of Present Illness HPI narrative: The patient is an 84-year-old female former smoker with history of type 2 diabetes and TIA who presents with her of 66 years for chief complaint of abdominal pain for the past 3 weeks. She was seen at an outside hospital, where she had lab work done and they noted no leukocytosis. She saw a provider who prescribed her ciprofloxacin and metronidazole for presumptive diverticulitis. She states she has a history of diverticulitis. However she notes that she has had loose stools, though she is changing her metformin dosing. She denies any fevers muscle aches or chills. She has not taken anything to feel better but her prescribed antibiotics, which she has been taking since Wednesday. She complains of transient nausea which she states is not abnormal for her. She states that she is very upset that they would not ?order the scan at the outside hospital due to her non elevated white blood cell count. Denies any dysuria urgency or frequency. Related Data Home Medications Medication Instructions Recorded Confirmed ezetimibe-simvastatin 1 tab PO QPM 09/10/19 09/10/19 hydrochlorothiazide 25 mg DAILY 09/10/19 09/10/19 lisinopril 10 mg PO QAM 09/10/19 09/10/19 metformin 500 mg PO TID 09/10/19 09/10/19 metoprolol tartrate 25 mg PO BID 09/10/19 09/10/19 potassium chloride [Klor-Con 10] 10 meq PO DAILY 09/10/19 09/10/19 Allergies Allergy/AdvReac Type Severity Reaction Status Date / Time Penicillins Allergy Intermediate Rash Verified 05/04/20 11:21 hydrocodone Allergy Verified 05/04/20 11:21 Review of Systems <STEPHANIE White - Last Filed: 05/04/20 13:51> Review of Systems Narrative: GENERAL: Denies chills, fatigue, malaise, fever, sweats. HEENT: Denies sinus pain, ear pain, sore throat, difficulty swallowing, dizziness. RESPIRATORY: Denies dyspnea, cough, wheezing, hemoptysis, sputum. CARDIOVASCULAR: Denies chest pain, palpitations, orthopnea, edema, GASTROINTESTINAL: See HPI : Denies dysuria, frequency, incontinence, hematuria, urinary retention. MUSCULOSKELETAL: denies weakness, joint pain, or bony pain SKIN: Denies rash, skin lesions, or other NEUROLOGIC: Denies weakness, headache, numbness, change in speech, confusion, seizures, incoordination. PSYCHIATRIC: No concerning psychosocial issues. 12 point review of systems is negative except for those stated above Patient History <VLADISLAV White-BC - Last Filed: 05/04/20 13:51> Surgical History H/O hysterectomy with oophorectomy Family History Mother Old age Father Alcoholic dependence syndrome Social History household members: spouse Smoking Status: Former smoker alcohol intake: former Smoking Status: Former smoker Exam <VLADISLAV White-BC - Last Filed: 05/04/20 13:51> Narrative Exam Narrative: GENERAL: This is a well-nourished, well-developed patient, in no acute distress HEAD: Atraumatic. Normocephalic. No temporal or scalp tenderness. EYES: Pupils equal round and reactive. Extraocular motions intact. No scleral icterus. No injection or drainage. ENT: Nose without bleeding, purulent drainage or septal hematoma. Wearing a Airway patent. NECK: Trachea midline. No JVD or lymphadenopathy. Supple, nontender, no meningeal signs. CARDIOVASCULAR: Irregular rate and irregular rhythm RESPIRATORY: Clear to auscultation. Breath sounds equal bilaterally. No wheezes, rales, or rhonchi. No cough. No increased respiratory effort. No accessory muscle use. GASTROINTESTINAL: Abdomen soft, diffuse tenderness to palpation left lower quadrant, nondistended. No hepato-splenomegaly, or palpable masses. No guarding. Active bowel sounds all 4 quadrants EXTREMITIES: No clubbing, cyanosis, or edema. No joint tenderness, effusion, or edema noted. BACK: Nontender without deformity or crepitance. No flank tenderness. NEURO: AOx3. SKIN: No rash or erythema on visible skin Initial Vital Signs Initial Vital Signs: Vital Signs Temperature 97.8 F 05/04/20 11:15 Pulse Rate 57 L 05/04/20 11:15 Respiratory Rate 16 05/04/20 11:15 Blood Pressure 145/68 H 05/04/20 11:15 Pulse Oximetry 96 05/04/20 11:15 <Edwin Hayes DO - Last Filed: 05/04/20 13:58> Initial Vital Signs Initial Vital Signs: Vital Signs Temperature 97.8 F 05/04/20 11:15 Pulse Rate 57 L 05/04/20 11:15 Respiratory Rate 16 05/04/20 11:15 Blood Pressure 145/68 H 05/04/20 11:15 Pulse Oximetry 96 05/04/20 11:15 Scores <STEPHANIE White - Last Filed: 05/04/20 13:51> GCS Aviva coma scale eye opening: Spontaneous Aviva coma scale verbal response: Orientated Goodrich coma scale motor response: Obey commands Goodrich coma scale total score: 15 Course <STEPHANIE White - Last Filed: 05/04/20 13:51> Orders Ordered: ED Orders 05/04/20 11:22 Complete Blood Count AUTO DIFF Stat Comprehensive Metabolic Panel Stat Lipase Stat Magnesium Stat Partial Thromboplastin Time Stat Prothrombin Time INR Stat 05/04/20 11:27 EKG-12 Lead Stat 05/04/20 11:48 CT abdomen pelvis w con Stat GI Panel (Film Array) Stat Discontinued Medications Magnesium Citrate (Magnesium Citrate 300 Ml Solution) 150 ml PO NOW ONE Stop: 05/04/20 13:35 Last Admin: 05/04/20 13:48 Dose: 150 ml Documented by: JOCELINE Simethicone (Simethicone 80 Mg Tablet) 80 mg PO NOW ONE Stop: 05/04/20 13:35 Last Admin: 05/04/20 13:49 Dose: 80 mg Documented by: JOCELINE Vital Signs Vital signs: Vital Signs - 8 hr 05/04/20 11:15 05/04/20 12:21 05/04/20 12:23 Temperature 97.8 F Pulse Rate 57 L 60 56 L Respiratory Rate 16 Blood Pressure 145/68 H 165/71 H Pulse Oximetry 96 77 L 100 05/04/20 12:30 05/04/20 12:31 05/04/20 13:00 Temperature Pulse Rate 48 L 48 L 51 L Respiratory Rate Blood Pressure 143/65 H Pulse Oximetry 100 100 99 05/04/20 13:01 05/04/20 13:30 05/04/20 13:31 Temperature Pulse Rate 52 L 47 L 48 L Respiratory Rate 26 H 36 H Blood Pressure 142/60 H 142/61 H Pulse Oximetry 100 100 100 <Edwin Hayes DO - Last Filed: 05/04/20 13:58> Orders Ordered: ED Orders 05/04/20 11:22 Complete Blood Count AUTO DIFF Stat Comprehensive Metabolic Panel Stat Lipase Stat Magnesium Stat Partial Thromboplastin Time Stat Prothrombin Time INR Stat 05/04/20 11:27 EKG-12 Lead Stat 05/04/20 11:48 CT abdomen pelvis w con Stat GI Panel (Film Array) Stat Discontinued Medications Magnesium Citrate (Magnesium Citrate 300 Ml Solution) 150 ml PO NOW ONE Stop: 05/04/20 13:35 Last Admin: 05/04/20 13:48 Dose: 150 ml Documented by: JOCELINE Simethicone (Simethicone 80 Mg Tablet) 80 mg PO NOW ONE Stop: 05/04/20 13:35 Last Admin: 05/04/20 13:49 Dose: 80 mg Documented by: JOCELINE Vital Signs Vital signs: Vital Signs - 8 hr 05/04/20 11:15 05/04/20 12:21 05/04/20 12:23 Temperature 97.8 F Pulse Rate 57 L 60 56 L Respiratory Rate 16 Blood Pressure 145/68 H 165/71 H Pulse Oximetry 96 77 L 100 05/04/20 12:30 05/04/20 12:31 05/04/20 13:00 Temperature Pulse Rate 48 L 48 L 51 L Respiratory Rate Blood Pressure 143/65 H Pulse Oximetry 100 100 99 05/04/20 13:01 05/04/20 13:30 05/04/20 13:31 Temperature Pulse Rate 52 L 47 L 48 L Respiratory Rate 26 H 36 H Blood Pressure 142/60 H 142/61 H Pulse Oximetry 100 100 100 MDM - Abdominal Pain <ADALI WhiteBC - Last Filed: 05/04/20 13:51> Lab Data Attestation: I reviewed the patient's lab results. Result diagrams: 05/04/20 11:22 05/04/20 11:22 Labs: Lab Results 05/04/20 05/04/20 05/04/20 Range/Units 11:22 11:22 11:22 WBC 7.9 (4.5-11.0) X10^3/uL RBC 4.21 (4.0-5.2) X10^6/uL Hgb 12.3 (12.0-16.0) g/dL Hct 37.8 (36-46) % MCV 89.6 (80-100) fL MCH 29.2 (26-34) PG MCHC 32.6 (30-36) % RDW 15.6 H (11.6-14.8) % Plt Count 336 (150-400) X10^3/uL Neut % (Auto) 66.5 (50-75) % Lymph % (Auto) 23.1 L (25-40) % [place] % (Auto) 8.1 (3-14) % Eos % (Auto) 1.4 L (2-4) % Baso % (Auto) 0.9 (0-2) % Neut # (Auto) 5300 (2214-3397) /uL Lymph # (Auto) 1800 (9539-8613) /uL [place] # (Auto) 600 (0-900) /uL Eos # (Auto) 100 (0-450) /uL Baso # (Auto) 100 (0-100) /uL PT 17.4 H (10.1-12.7) SECONDS INR 1.5 H (0.9-1.3) APTT 33 D (26.4-36.2) SECONDS Sodium 137 (137-145) mmol/L Potassium 3.8 (3.4-5.1) mmol/L Chloride 106 (98-107) mmol/L Carbon Dioxide 23 (22-32) mmol/L BUN 17 (7-17) mg/dL Creatinine 0.77 (0.52-1.04) mg/dL Estimated GFR > 60.0 (>60) mL/min BUN/Creatinine Ratio 22.1 H (6-22) Glucose 115 H (80-110) mg/dL Calcium 9.1 (8.4-10.2) mg/dL Magnesium (1.6-2.3) mg/dL Total Bilirubin 0.3 (0.2-1.3) mg/dL AST 25 (14-36) IU/L ALT 16 (<35) IU/L Alkaline Phosphatase 48 (38-126) U/L Total Protein 7.4 (6.3-8.2) g/dL Albumin 4.4 (3.5-5.0) g/dL Globulin 3.0 (1.7-4.1) g/dL Albumin/Globulin Ratio 1.5 (1.0-2.8) Lipase 202 (23-300) U/L 05/04/20 Range/Units 11:22 WBC (4.5-11.0) X10^3/uL RBC (4.0-5.2) X10^6/uL Hgb (12.0-16.0) g/dL Hct (36-46) % MCV (80-100) fL MCH (26-34) PG MCHC (30-36) % RDW (11.6-14.8) % Plt Count (150-400) X10^3/uL Neut % (Auto) (50-75) % Lymph % (Auto) (25-40) % [place] % (Auto) (3-14) % Eos % (Auto) (2-4) % Baso % (Auto) (0-2) % Neut # (Auto) (1369-2512) /uL Lymph # (Auto) (9372-8440) /uL [place] # (Auto) (0-900) /uL Eos # (Auto) (0-450) /uL Baso # (Auto) (0-100) /uL PT (10.1-12.7) SECONDS INR (0.9-1.3) APTT (26.4-36.2) SECONDS Sodium (137-145) mmol/L Potassium (3.4-5.1) mmol/L Chloride (98-107) mmol/L Carbon Dioxide (22-32) mmol/L BUN (7-17) mg/dL Creatinine (0.52-1.04) mg/dL Estimated GFR (>60) mL/min BUN/Creatinine Ratio (6-22) Glucose (80-110) mg/dL Calcium (8.4-10.2) mg/dL Magnesium 1.6 (1.6-2.3) mg/dL Total Bilirubin (0.2-1.3) mg/dL AST (14-36) IU/L ALT (<35) IU/L Alkaline Phosphatase (38-126) U/L Total Protein (6.3-8.2) g/dL Albumin (3.5-5.0) g/dL Globulin (1.7-4.1) g/dL Albumin/Globulin Ratio (1.0-2.8) Lipase (23-300) U/L Point of care testing: Urine Dip Bedside Urine Glucose Negative Bedside Urine Bilirubin - Negative Bedside Urine Ketone - Negative Urine Specific [place] 1.025 Bedside Urine Occult Blood - Negative Bedside Urine pH 6 Bedside Urine Protein - Negative Bedside Urine Urobilinogen - Negative Bedside Urine Nitrite - Negative Bedside Urine Leukocytes - Negative Esterase Imaging Data CT scan - abdomen/pelvis: Radiologist's Impression: [address] [place] [id number] Scan ReportSigned Patient: Hortensia HolleyMR#: [id number]: 5Acct:[id number]/Sex: 84 / FDate of Service: 05/04/20Loc: EDAccession Number: [id number] Procedure: CT abdomen pelvis w con Ordering Provider: Lexi Rdz- PROCEDURE: CT ABDOMEN PELVIS W CON INDICATIONS: abd pain x weeks TECHNIQUE: After the administration of intravenous contrast, 5 mm thick sections acquired from the diaphragm to the symphysis. 5 mm coronal and sagittal reformats were acquired. For radiation dose reduction, the following was used: automated exposure control, adjustment of mA and/or kV according to patient size. COMPARISON: None. FINDINGS: Image quality: Excellent. Exam was performed in the late arterial phase. ABDOMEN: Lung bases: Lung bases are clear. Heart size is normal. Solid organs: Liver is normal in size and enhancement. There is mild intrahepatic ductal dilation. Gallbladder is surgically absent. The common bile duct measures 11 millimeters in diameter. Pancreas enhances normally. Spleen is normal in size and enhancement. No adrenal nodules. Kidneys demonstrate normal size and enhancement, without hydronephrosis. Peritoneum and bowel: Stomach demonstrates questionable wall thickening although evaluation is limited given nondistention. Bowel loops demonstrate normal wall thickness and caliber. No free fluid or air. Moderate stool burden. No evidence of appendicitis. Scattered sigmoid colon diverticulosis without evidence of diverticulitis. Nodes and vessels: No retroperitoneal or mesenteric adenopathy by size crite jorge. Aorta and inferior vena cava are normal in size. Miscellaneous: No ventral hernias. PELVIS: Genitourinary: Bladder wall thickness is normal. Miscellaneous: Small fat containing bilateral inguinal hernias. Bones: No suspicious bony lesions. No vertebral body compression fractures. IMPRESSION: Questionable wall thickening of the stomach is favored to be due to nondis tention, however gastritis is not completely excluded. Moderate stool burden. Diverticulosis without evidence of diverticulitis. Mild intrahepatic ductal dilation and prominence of the common bile duct measuring 11 millimeters. Although this may be within normal limits given cholecystectomy, recommend correlation with lab values to exclude obstruction. Dictated by: Tyrone Pennington D.O. on 05/04/2020 at 11:35 Approved by: Tyrone Pennington D.O. on 05/04/2020 at 11:45 MDM Narrative Medical decision making narrative: The patient is an 84-year-old female who presents with a chief complaint of 3 weeks of left lower quadrant pain/abdominal pain. Given the duration of her pain, lab work was obtained as well as imaging. Lab work is reassuring with no leukocytosis, normal renal function, no elevated LFTs or bilirubin. Urine has no signs of infection. CT shows moderate stool burden, no evidence of diverticulitis, though it is possible that she previously had diverticulitis which is being treated by her antibiotics at this point which she has been on since earlier this week. Her CBD measures 11 mm which may be within normal limits given her history of theodora, but lab work was scrutinized. She has no elevated LFTs or bilirubin. No leukocytosis. She has no tenderness to palpation of her upper abdominal quadrants. I discussed at length with the patient the importance of following up with primary care provider, coming back to the ER for acute concerns such as abdominal pain with fever, inability keep down fluids. The patient declines any nausea medications. Discussed at length remedies for constipation and. Patient declined rectal exam to evaluate for Hemoccult stool. Patient unable to give stool sample throughout her stay in the emergency department. <Edwin Hayes, - Last Filed: 05/04/20 13:58> Lab Data Labs: Lab Results 05/04/20 05/04/20 05/04/20 Range/Units 11:22 11:22 11:22 WBC 7.9 (4.5-11.0) X10^3/uL RBC 4.21 (4.0-5.2) X10^6/uL Hgb 12.3 (12.0-16.0) g/dL Hct 37.8 (36-46) % MCV 89.6 (80-100) fL MCH 29.2 (26-34) PG MCHC 32.6 (30-36) % RDW 15.6 H (11.6-14.8) % Plt Count 336 (150-400) X10^3/uL Neut % (Auto) 66.5 (50-75) % Lymph % (Auto) 23.1 L (25-40) % [place] % (Auto) 8.1 (3-14) % Eos % (Auto) 1.4 L (2-4) % Baso % (Auto) 0.9 (0-2) % Neut # (Auto) 5300 (2486-3880) /uL Lymph # (Auto) 1800 (4387-5152) /uL [place] # (Auto) 600 (0-900) /uL Eos # (Auto) 100 (0-450) /uL Baso # (Auto) 100 (0-100) /uL PT 17.4 H (10.1-12.7) SECONDS INR 1.5 H (0.9-1.3) APTT 33 D (26.4-36.2) SECONDS Sodium 137 (137-145) mmol/L Potassium 3.8 (3.4-5.1) mmol/L Chloride 106 (98-107) mmol/L Carbon Dioxide 23 (22-32) mmol/L BUN 17 (7-17) mg/dL Creatinine 0.77 (0.52-1.04) mg/dL Estimated GFR > 60.0 (>60) mL/min BUN/Creatinine Ratio 22.1 H (6-22) Glucose 115 H (80-110) mg/dL Calcium 9.1 (8.4-10.2) mg/dL Magnesium (1.6-2.3) mg/dL Total Bilirubin 0.3 (0.2-1.3) mg/dL AST 25 (14-36) IU/L ALT 16 (<35) IU/L Alkaline Phosphatase 48 (38-126) U/L Total Protein 7.4 (6.3-8.2) g/dL Albumin 4.4 (3.5-5.0) g/dL Globulin 3.0 (1.7-4.1) g/dL Albumin/Globulin Ratio 1.5 (1.0-2.8) Lipase 202 (23-300) U/L 05/04/20 Range/Units 11:22 WBC (4.5-11.0) X10^3/uL RBC (4.0-5.2) X10^6/uL Hgb (12.0-16.0) g/dL Hct (36-46) % MCV (80-100) fL MCH (26-34) PG MCHC (30-36) % RDW (11.6-14.8) % Plt Count (150-400) X10^3/uL Neut % (Auto) (50-75) % Lymph % (Auto) (25-40) % [place] % (Auto) (3-14) % Eos % (Auto) (2-4) % Baso % (Auto) (0-2) % Neut # (Auto) (4413-3261) /uL Lymph # (Auto) (1411-6922) /uL [place] # (Auto) (0-900) /uL Eos # (Auto) (0-450) /uL Baso # (Auto) (0-100) /uL PT (10.1-12.7) SECONDS INR (0.9-1.3) APTT (26.4-36.2) SECONDS Sodium (137-145) mmol/L Potassium (3.4-5.1) mmol/L Chloride (98-107) mmol/L Carbon Dioxide (22-32) mmol/L BUN (7-17) mg/dL Creatinine (0.52-1.04) mg/dL Estimated GFR (>60) mL/min BUN/Creatinine Ratio (6-22) Glucose (80-110) mg/dL Calcium (8.4-10.2) mg/dL Magnesium 1.6 (1.6-2.3) mg/dL Total Bilirubin (0.2-1.3) mg/dL AST (14-36) IU/L ALT (<35) IU/L Alkaline Phosphatase (38-126) U/L Total Protein (6.3-8.2) g/dL Albumin (3.5-5.0) g/dL Globulin (1.7-4.1) g/dL Albumin/Globulin Ratio (1.0-2.8) Lipase (23-300) U/L Point of care testing: Urine Dip Bedside Urine Glucose Negative Bedside Urine Bilirubin - Negative Bedside Urine Ketone - Negative Urine Specific [place] 1.025 Bedside Urine Occult Blood - Negative Bedside Urine pH 6 Bedside Urine Protein - Negative Bedside Urine Urobilinogen - Negative Bedside Urine Nitrite - Negative Bedside Urine Leukocytes - Negative Esterase Discharge Plan Departure Patient Disposition: Home Clinical Impression: Abdominal pain Qualifiers: Abdominal location: unspecified location Qualified Code(s): R10.9 - Unspecified abdominal pain Constipation Qualifiers: Constipation type: unspecified constipation type Qualified Code(s): K59.00 - Constipation, unspecified Instructions: Constipation (Alternative Therapy), DI for Abdominal Pain-Adult, DI for Constipation Activity Restrictions/Additional Instructions: Thank you for trusting us with your care today. As discussed, your lab work and imaging was reassuring. However as I discussed, it is impossible for me to know what your scan would have shown prior to starting antibiotics. Your CT scan does show constipation. We have given you a laxative to take at home. You can also try simethicone to help with gas. As discussed, please follow-up with primary care provider in the next few days. Please come back to the emergency department for any acute concerns such as abdominal pain with fever, inability keep down fluids etcetera. Prescriptions: No Action metformin 500 mg Tablet 500 mg PO TID RF: 0 lisinopril 10 mg Tablet 10 mg PO QAM RF: 0 hydrochlorothiazide 25 mg Tablet 25 mg DAILY RF: 0 ezetimibe-simvastatin 10-40 mg Tablet 1 tab PO QPM RF: 0 metoprolol tartrate 25 mg Tablet 25 mg PO BID RF: 0 potassium chloride [Klor-Con 10] 10 mEq tablet extended release 10 meq PO DAILY RF: 0 Referrals: Tayler Caldera PA-C [Non-Staff] - <Edwin Hayes, - Last Filed: 05/04/20 13:58> Cosign ED Attending Cosannature Attestation: Dr Hayes Co-Sign Statement: I was available for consultation during this patient's emergency department visit. This chart is signed by myself for administrative purposes only. I did not have direct contact with this patient during this visit. They were seen independently by the APC.
[2020-05-04 12:37] LABS: Magnesium 1.6 mg/dL (1.6-2.3)
[2020-05-04] MEDS: MAGNESIUM CITRATE 300 ML SOLUTION 150 ML PO (13:48)
[2020-05-04] MEDS: SIMETHICONE 80 MG TABLET PO (13:49)
== END 2020-05-04 14:00 | disposition home or self-care (01) ==
PROVIDERS: Emergency Provider Nurse Practitioner Family
DX: R10.32 Left lower quadrant pain (principal); K59.00 Constipation, unspecified; R11.0 Nausea; E11.9 Type 2 diabetes mellitus without complications; Z86.73 Personal history of transient ischemic attack (TIA), and cerebral infarction without residual deficits
CPT/HCPCS: 36415; 74177; 80053; 81003; 83690; 83735; 85025; 85610; 85730; 93005; 93010; 99284; Q9967

== ENCOUNTER 2021-08-26 11:16 | Inpatient (IN) | payer MEDICARE, OTHER, SELFPAY ==
[2019-09-10 18:06] VITALS: BMI 25.7
[2021-08-26] VITALS (15 sets, daily range): BP systolic 109–152; BP diastolic 54–76; PULSE 49–82; RESP 18–37; TEMP 36.5–36.9; O2SAT 90–97; BMI 21.9
--- NOTE | 2021-08-26 11:34 | DI.RAD.S_ITS ---
PROCEDURE: XR CHEST 2V INDICATIONS: SOB TECHNIQUE: 2 views of the chest were acquired. COMPARISON: None. FINDINGS: Surgical changes and devices: None. Lungs and pleura: Lungs are clear. No pleural effusions or pneumothorax. Mediastinum: Mediastinal contours are normal. Heart size is enlarged. Bones and chest wall: No suspicious bony abnormalities. Soft tissues appear unremarkable. IMPRESSION: No acute pulmonary process. Dictated by: Adelita Kraft M.D. on 08/26/2021 at 12:21 Approved by: Adelita Kraft M.D. on 08/26/2021 at 12:21
--- NOTE | 2021-08-26 12:07 | ED.FALL ---
HPI - Fall General Chief Complaint: Fall Stated Complaint: COVID sx,nausea and weakness Time Seen by Provider: 08/26/21 11:28 Source: EMS Mode of arrival: EMS History of Present Illness HPI Narrative: 85-year-old female former smoker with history of type 2 diabetes, hypertension, hyperlipidemia and TIA presents with her in the chief complaint increasing weakness over the past few days along with dry and hacking cough, subjective fever and multiple episodes of nausea and vomiting. She has had at least 2 falls but very clearly denies any head injury. She states that the falls were because her legs were both sufficiently week to not support her weight. She denies any significant shortness of breath. She is immunized against COVID. She states that she has had poor appetite and very little oral intake over the past few days. Related Data Home Medications Medication Instructions Recorded Confirmed ezetimibe 10 mg-simvastatin 40 mg 1 tab PO QPM 09/10/19 08/26/21 tablet hydrochlorothiazide 25 mg tablet 25 mg PO DAILY 09/10/19 08/26/21 lisinopril 10 mg tablet 10 mg PO QAM 09/10/19 08/26/21 metformin 500 mg tablet 500 mg PO TID 09/10/19 08/26/21 metoprolol tartrate 25 mg tablet 25 mg PO BID 09/10/19 08/26/21 potassium chloride 10 mEq 10 meq PO DAILY 09/10/19 08/26/21 tablet,extended release (Klor-Con) albuterol sulfate 90 mcg/actuation 90 mcg INHALATION QPM 08/26/21 08/26/21 aerosol inhaler (ProAir HFA) apixaban 5 mg tablet (Eliquis) 5 mg PO BID 08/26/21 08/26/21 Allergies Allergy/AdvReac Type Severity Reaction Status Date / Time Penicillins Allergy Intermediate Rash Verified 08/26/21 12:05 hydrocodone Allergy Verified 08/26/21 12:05 Review of Systems Review of Systems Narrative: GENERAL: See HPI HEENT: Denies sinus pain, ear pain, sore throat, difficulty swallowing, dizziness. RESPIRATORY: See HPI CARDIOVASCULAR: Denies chest pain, palpitations, orthopnea, edema, GASTROINTESTINAL: See HP : Denies dysuria, frequency, incontinence, hematuria, urinary retention. MUSCULOSKELETAL: denies weakness, joint pain, or bony pain SKIN: Denies rash, skin lesions, or other NEUROLOGIC: Denies weakness, headache, numbness, change in speech, confusion, seizures, incoordination. PSYCHIATRIC: No concerning psychosocial issues. 12 point review of systems is negative except for those stated above Patient History Surgical History H/O hysterectomy with oophorectomy Family History Mother Old age Father Alcoholic dependence syndrome Social History household members: spouse Smoking Status: Former smoker alcohol intake: former Smoking Status: Former smoker Substance Use Type: does not use Exam Narrative Exam Narrative: GENERAL: [85] year old patient appears stated age. Well-developed patient, in mild distress. HEAD: Atraumatic. Normocephalic. EYES: Pupils equal round and reactive. Extraocular motions intact. No scleral icterus. No injection or drainage. ENT: Dry mucous membranes Nose without bleeding, purulent drainage. Throat without erythema, tonsillar hypertrophy or exudate. Airway patent. NECK: Trachea midline. No midline bony tenderness, step-offs or pain with axial load CARDIOVASCULAR: Regular rate and rhythm without murmurs, gallops, or rubs. RESPIRATORY: Prolonged expiratory phase with frequent dry, hacking cough GASTROINTESTINAL: Abdomen soft, non-tender, nondistended. EXTREMITIES: No edema or joint tenderness. BACK: Nontender without deformity or crepitance. No flank tenderness. NEURO: AOx3. SKIN: Poor skin turgor No rash or erythema of visible areas Initial Vital Signs Initial Vital Signs: Vital Signs Temperature 98.5 F 08/26/21 10:50 Pulse Rate 59 L 08/26/21 10:50 Respiratory Rate 18 08/26/21 10:50 Blood Pressure 130/59 L 08/26/21 10:50 Pulse Oximetry 96 08/26/21 10:50 Course Orders Ordered: Albuterol (Albuterol 2.5 Mg/3 Ml Neb (Adult)) 2.5 mg INH BEDTIME [facility] Last Admin: 08/26/21 23:36 Dose: Not Given Documented by: [email or web address] Apixaban (Apixaban 5 Mg Tablet) 5 mg PO BID [facility] Last Admin: 08/26/21 20:14 Dose: 5 mg Documented by: MYA Atorvastatin Calcium (Atorvastatin 20 Mg Tablet) 20 mg PO BEDTIME [facility] Last Admin: 08/26/21 20:14 Dose: 20 mg Documented by: MYA Ezetimibe (Ezetimibe 10 Mg Tablet) 10 mg PO BEDTIME [facility] Last Admin: 08/26/21 20:15 Dose: 10 mg Documented by: MYA Furosemide (Furosemide 20 Mg Tablet) 20 mg PO 0800,1700 [facility] Hydrochlorothiazide (Hydrochlorothiazide 25 Mg Tablet) 25 mg PO DAILY [facility] Lisinopril (Lisinopril 10 Mg Tablet) 10 mg PO DAILY [facility] Metformin HCl (Metformin Hcl 500 Mg Tablet) 500 mg PO TID [facility] Last Admin: 08/26/21 20:14 Dose: 500 mg Documented by: MYA Metoprolol Tartrate (Metoprolol Ir 25 Mg Tablet) 25 mg PO BID [facility] Last Admin: 08/26/21 20:14 Dose: 25 mg Documented by: MYA Ondansetron HCl (Ondansetron 4 Mg/2 Ml Inj) 4 mg IV Q6HR PRN PRN Reason: Nausea And Vomiting Last Admin: 08/26/21 20:14 Dose: 4 mg Documented by: MYA Ondansetron HCl (Ondansetron 4 Mg Odt) 4 mg SL Q6HR PRN PRN Reason: Nausea Pantoprazole Sodium (Pantoprazole 40 Mg Vial) 40 mg IV BID [facility] Last Admin: 08/26/21 20:14 Dose: 40 mg Documented by: MYA Potassium Chloride (Potassium Chloride 10 Meq Tab) 10 meq PO DAILY [facility] Discontinued Medications Sodium Chloride (Normal Saline 0.9%) 1,000 mls @ 1,000 mls/hr IV BOLUS ONE Stop: 08/26/21 12:27 Last Infusion: 08/26/21 15:31 Dose: 0 mls/hr Documented by: Admin: 08/26/21 12:46 Dose: 1,000 mls/hr Documented by: SRIRAM Sodium Chloride (Normal Saline 0.9%) 1,000 mls @ 1,000 mls/hr IV BOLUS ONE Stop: 08/26/21 13:38 Last Admin: 08/26/21 15:34 Dose: Not Given Documented by: HOLGER Ondansetron HCl (Ondansetron 4 Mg/2 Ml Inj) 4 mg IV NOW ONE Stop: 08/26/21 12:41 Last Admin: 08/26/21 13:21 Dose: 4 mg Documented by: HOLGER Pantoprazole Sodium (Pantoprazole 40 Mg Vial) 40 mg IV NOW ONE Stop: 08/26/21 12:41 Last Admin: 08/26/21 13:21 Dose: 40 mg Documented by: HOLGER Vital Signs Vital signs: Vital Signs - 8 hr 08/26/21 10:50 08/26/21 11:20 08/26/21 11:27 Temperature 98.5 F Pulse Rate 59 L 55 L 50 L Respiratory Rate 18 24 Blood Pressure 130/59 L 109/54 L Pulse Oximetry 96 94 95 08/26/21 11:30 08/26/21 12:13 08/26/21 12:30 Temperature Pulse Rate 50 L 50 L 52 L Respiratory Rate 18 24 24 Blood Pressure 130/59 L Pulse Oximetry 95 90 L 94 08/26/21 13:00 08/26/21 13:30 08/26/21 14:00 Temperature Pulse Rate 49 L 53 L 57 L Respiratory Rate 24 26 H 26 H Blood Pressure Pulse Oximetry 97 95 96 MDM - Fall Lab Data Result diagrams: 08/27/21 05:10 08/27/21 05:10 Labs: Lab Results 08/26/21 08/26/21 08/26/21 Range/Units 12:20 12:20 12:20 WBC 5.2 (4.5-11.0) X10^3/uL RBC 3.56 L (4.0-5.2) X10^6/uL Hgb 10.3 L (12.0-16.0) g/dL Hct 30.4 L (36-46) % MCV 85.4 (80-100) fL MCH 28.9 (26-34) PG MCHC 33.8 (30-36) % RDW 16.2 H (11.6-14.8) % Plt Count 193 (150-400) X10^3/uL Neut % (Auto) 76.4 H (50-75) % Lymph % (Auto) 12.1 L (25-40) % [place] % (Auto) 10.9 (3-14) % Eos % (Auto) 0.0 L (2-4) % Baso % (Auto) 0.6 (0-2) % Neut # (Auto) 4000 (6260-1053) /uL Lymph # (Auto) 600 L (7529-8368) /uL [place] # (Auto) 600 (0-900) /uL Eos # (Auto) 0 (0-450) /uL Baso # (Auto) 0 (0-100) /uL PT (10.1-12.7) SECONDS INR (0.9-1.3) Sodium 135 L (137-145) mmol/L Potassium 4.1 (3.4-5.1) mmol/L Chloride 102 (98-107) mmol/L Carbon Dioxide 24 (22-32) mmol/L BUN 24 H (7-17) mg/dL Creatinine 0.95 (0.52-1.04) mg/dL Estimated GFR 58 L (>60) mL/min BUN/Creatinine Ratio 25.3 H (6-22) Glucose 122 H (80-110) mg/dL Lactate 1.2 (0.7-2.1) mmol/L Calcium 8.6 (8.4-10.2) mg/dL Magnesium (1.6-2.3) mg/dL Total Bilirubin 0.3 (0.2-1.3) mg/dL AST 52 H (14-36) IU/L ALT 31 (<35) IU/L Alkaline Phosphatase 44 (38-126) U/L Total Creatine Kinase (30-135) U/L CK-MB (CK-2) CK-MB (CK-2) Rel Index Troponin I (0.01-0.034) ng/mL NT-Pro-B Natriuret Pep (<450) pg/mL Total Protein 6.9 (6.3-8.2) g/dL Albumin 4.0 (3.5-5.0) g/dL Globulin 2.9 (1.7-4.1) g/dL Albumin/Globulin Ratio 1.4 (1.0-2.8) SARS-CoV-2 (PCR) (Negative) 08/26/21 08/26/21 08/26/21 Range/Units 12:20 12:20 13:10 WBC (4.5-11.0) X10^3/uL RBC (4.0-5.2) X10^6/uL Hgb (12.0-16.0) g/dL Hct (36-46) % MCV (80-100) fL MCH (26-34) PG MCHC (30-36) % RDW (11.6-14.8) % Plt Count (150-400) X10^3/uL Neut % (Auto) (50-75) % Lymph % (Auto) (25-40) % [place] % (Auto) (3-14) % Eos % (Auto) (2-4) % Baso % (Auto) (0-2) % Neut # (Auto) (8579-3782) /uL Lymph # (Auto) (3269-9913) /uL [place] # (Auto) (0-900) /uL Eos # (Auto) (0-450) /uL Baso # (Auto) (0-100) /uL PT 14.0 H (10.1-12.7) SECONDS INR 1.2 (0.9-1.3) Sodium (137-145) mmol/L Potassium (3.4-5.1) mmol/L Chloride (98-107) mmol/L Carbon Dioxide (22-32) mmol/L BUN (7-17) mg/dL Creatinine (0.52-1.04) mg/dL Estimated GFR (>60) mL/min BUN/Creatinine Ratio (6-22) Glucose (80-110) mg/dL Lactate (0.7-2.1) mmol/L Calcium (8.4-10.2) mg/dL Magnesium 2.1 (1.6-2.3) mg/dL Total Bilirubin (0.2-1.3) mg/dL AST (14-36) IU/L ALT (<35) IU/L Alkaline Phosphatase (38-126) U/L Total Creatine Kinase 55 (30-135) U/L CK-MB (CK-2) TNP CK-MB (CK-2) Rel Index TNP Troponin I 0.013 (0.01-0.034) ng/mL NT-Pro-B Natriuret Pep 3270 H (<450) pg/mL Total Protein (6.3-8.2) g/dL Albumin (3.5-5.0) g/dL Globulin (1.7-4.1) g/dL Albumin/Globulin Ratio (1.0-2.8) SARS-CoV-2 (PCR) Positive H (Negative) Imaging Data Chest x-ray: Radiologist's Impression: Close Pelvis X-Ray (Signed) [place] - 08/26/21 Chest X-Ray (Signed) Adelita Kraft - 08/26/21 Abdomen/Pelvis CT (Signed) Tyrone Pennington - 05/04/20 Echocardiogram Ultrasound (Signed) Rock Castañeda - 09/11/19 Brain MRI (Signed) [place] - 09/10/19 Telemetry Strips 09/10/[address] (Signed) Jasvir Benedictsse - 09/10/19 Launch?[address] [address] XRay Report Signed Patient: Hortensia Holley MR#: [id number] : 1935 Acct:[id number] Age/Sex: 85 / F Date of Service: 08/26/21 Loc: ED Accession Number: [id number] ?? Procedure: XR chest 2V Ordering Provider: Willie Espinoza D.O. PROCEDURE:? XR CHEST 2V ? INDICATIONS:? SOB ? TECHNIQUE:? 2 views of the chest were acquired.? ? COMPARISON:? None. ? FINDINGS:? ? Surgical changes and devices:? None.? ? Lungs and pleura:? Lungs are clear.? No pleural effusions or pneumothorax.? ? Mediastinum:? Mediastinal contours are normal.? Heart size is enlarged. ? Bones and chest wall:? No suspicious bony abnormalities.? Soft tissues appear unremarkable.? ? IMPRESSION:? No acute pulmonary process. ? ? Dictated by: Adelita Kraft M.D. on 08/26/2021 at 12:21 ? ? Approved by: Adelita Kraft M.D. on 08/26/2021 at 12:21 ? MDM Narrative Medical decision making narrative: 85-year-old female with multiple comorbidities has become profoundly weak with poor oral intake, likely due to COVID. Thankfully, she has no significant respiratory distress, hypoxemia or PE before supplemental oxygen. Despite this, however she is sufficiently decompensated and weak that she will require hospitalization for further evaluation stabilization of her condition Discharge Plan Departure Patient Disposition: Admitted as Observation Clinical Impression: COVID, Weakness, Physical deconditioning Admit Date/Time: 08/26/21 15:00 Admit Provider: Emelia Carrero
[2021-08-26] MEDS: SODIUM CHLORIDE 0.9% 1,000 ML 1000 ML IV (12:46)
[2021-08-26 12:48] LABS: Add Manual Diff / Slide Review NO; Basophils Absolute Auto 0 /uL (0-100); Basophils Percent Auto 0.6 % (0-2); Eosinophils Absolute Auto 0 /uL (0-450); Hematocrit 30.4 % (36-46); Hemoglobin 10.3 g/dL (12.0-16.0); Lymphocytes Absolute Auto 600 /uL (1100-4500); Lymphocytes Percent Auto 12.1 % (25-40); Mean Corpuscular HGB Conc 33.8 % (30-36); Mean Corpuscular Hemoglobin 28.9 PG (26-34); Mean Corpuscular Volume 85.4 fL (80-100); Monocytes Absolute Auto 600 /uL (0-900); Monocytes Percent Auto 10.9 % (3-14); Neutrophils Absolute Auto 4000 /uL (1500-7000); Neutrophils Percent Auto 76.4 % (50-75); Platelet Count 193 X10^3/uL (150-400); Red Blood Cell Count 3.56 X10^6/uL (4.0-5.2); Red Cell Distribution Width 16.2 % (11.6-14.8); White Blood Cell Count 5.2 X10^3/uL (4.5-11.0)
[2021-08-26 12:56] LABS: INR 1.2 (0.9-1.3)
[2021-08-26 13:00] LABS: Creatine Kinase 55 U/L (30-135); Lactate (Lactic Acid) 1.2 mmol/L (0.7-2.1); Magnesium 2.1 mg/dL (1.6-2.3)
[2021-08-26 13:02] LABS: Alanine Aminotransferase 31 IU/L (<35); Albumin Globulin Ratio 1.4 (1.0-2.8); Alkaline Phosphatase 44 U/L (38-126); Aspartate Aminotransferase 52 IU/L (14-36); BUN Creatinine Ratio 25.3 (6-22); Bilirubin Total 0.3 mg/dL (0.2-1.3); Blood Urea Nitrogen 24 mg/dL (7-17); Calcium 8.6 mg/dL (8.4-10.2); Carbon Dioxide 24 mmol/L (22-32); Chloride 102 mmol/L (98-107); Estimated Glomerular Filt Rate 58 mL/min (>60); Globulin 2.9 g/dL (1.7-4.1); Glucose 122 mg/dL (80-110); HEMOLYSIS 16 (0-50); Potassium 4.1 mmol/L (3.4-5.1); Sodium 135 mmol/L (137-145); Total Protein 6.9 g/dL (6.3-8.2)
[2021-08-26 13:13] LABS: NT-proBNP (BNP-Adult 18+) 3270 pg/mL (<450); Troponin I 0.013 ng/mL (0.01-0.034)
[2021-08-26] MEDS: ONDANSETRON 4 MG/2 ML INJ IV ×2 (13:21→20:14)
[2021-08-26] MEDS: PANTOPRAZOLE 40 MG VIAL IV ×2 (13:21→20:14)
--- NOTE | 2021-08-26 13:25 | PC.NURSE ---
Lab called to say pt Covid +, studio producer aware.
[2021-08-26 13:26] LABS: COVID19 -Nasal RAPID POSITIVE (Negative)
--- NOTE | 2021-08-26 18:26 | PM.HP.1 ---
History of Present Illness History of Present Illness Chief complaint: COVID sx,nausea and weakness Narrative: Has known she had COVID for a couple days prior to presentation. Significant nausea and vomiting and leg weakness and it was the leg weakness than made her fall on her buttocks and they are sore now. Was vaccinated X2 - No boosters. Subsitute decision maker is Ke Holley (Robert). Patient History Surgical History H/O hysterectomy with oophorectomy Family & Social History Family History Mother Old age Father Alcoholic dependence syndrome Social History: household members spouse Prior Living Arrangements House Safety & Behavioral: Feels Safe in Current Yes Environment Been Physically Hurt or No Threatened By a Person Tobacco & Substance use: Tobacco type cigarettes Smoking Status Former smoker alcohol intake former Substance Use Type does not use Meds Home Medications and Allergies Home Medications Medication Instructions Recorded Confirmed Type ezetimibe 10 mg-simvastatin 40 mg 1 tab PO QPM 09/10/19 08/26/21 History tablet hydrochlorothiazide 25 mg tablet 25 mg PO DAILY 09/10/19 08/26/21 History lisinopril 10 mg tablet 10 mg PO QAM 09/10/19 08/26/21 History metformin 500 mg tablet 500 mg PO TID 09/10/19 08/26/21 History metoprolol tartrate 25 mg tablet 25 mg PO BID 09/10/19 08/26/21 History potassium chloride 10 mEq 10 meq PO DAILY 09/10/19 08/26/21 History tablet,extended release (Klor-Con) albuterol sulfate 90 mcg/actuation 90 mcg INHALATION QPM 08/26/21 08/26/21 History aerosol inhaler (ProAir HFA) apixaban 5 mg tablet (Eliquis) 5 mg PO BID 08/26/21 08/26/21 History Allergies Allergy/AdvReac Type Severity Reaction Status Date / Time Penicillins Allergy Intermediate Rash Verified 08/26/21 12:05 hydrocodone Allergy Verified 08/26/21 12:05 Review of Systems Constitutional Comments: Feels tired. Eyes Comments: none. ENT Comments: none. Cardiovascular Comments: has hypertension and medication for hyperlipidemia. atrial fibrillation on apixaban Respiratory Comments: Has had cough. Normally uses inhaler at night Gastrointestinal Comments: nausea and vomiting. Genitourinary Comments: none. Musculoskeletal Comments: buttock muscle pain from Fall. Integumentary/Breasts Comments: none. Neurologic Comments: none. Psychiatric Comments: none. Endocrine Comments: type 2 diabetes on metformin. Hematologic/Lymphatic Comments: none Allergic/Immunologic Comments: none Exam Vital Signs (past 8 hours): - 08/26/21 10:50 08/26/21 11:20 08/26/21 11:27 Temperature 98.5 F Pulse Rate 59 L 55 L 50 L Respiratory Rate 18 24 Blood Pressure 130/59 L 109/54 L Pulse Oximetry 96 94 95 08/26/21 11:30 08/26/21 12:13 08/26/21 12:30 Temperature Pulse Rate 50 L 50 L 52 L Respiratory Rate 18 24 24 Blood Pressure 130/59 L Pulse Oximetry 95 90 L 94 08/26/21 13:00 08/26/21 13:30 08/26/21 14:00 Temperature Pulse Rate 49 L 53 L 57 L Respiratory Rate 24 26 H 26 H Blood Pressure Pulse Oximetry 97 95 96 08/26/21 14:30 08/26/21 14:53 08/26/21 15:00 Temperature Pulse Rate 52 L 53 L 54 L Respiratory Rate 37 H 24 20 Blood Pressure 138/60 Pulse Oximetry 97 97 96 Oxygen Delivery Method Room Air Const General: cooperative and comfortable HENMT Head: normal to inspection Eyes Pupils: PERRL EOM: EOM intact bilaterally Other: wears glasses Neck Other: no lymphadenopathy Resp Auscultation: clear to auscultation bilaterally Cardio Heart Sounds: S1 normal and S2 normal GI Inspection: normal to inspection Palpation: soft Other: bowel sounds hyperactive Other: not done. Skin General: no rashes or lesions noted Neuro General: patient alert and patient oriented x3 Extrem General: normal to inspection Psych Appearance: grossly normal Mood: congruent mood Objective Labs Result Diagrams: 08/26/21 12:20 08/26/21 12:20 Labs: Laboratory Results - last 24 hr 08/26/21 08/26/21 08/26/21 12:20 12:20 12:20 WBC 5.2 RBC 3.56 L Hgb 10.3 L Hct 30.4 L MCV 85.4 MCH 28.9 MCHC 33.8 RDW 16.2 H Plt Count 193 Neut % (Auto) 76.4 H Lymph % (Auto) 12.1 L [place] % (Auto) 10.9 Eos % (Auto) 0.0 L Baso % (Auto) 0.6 Neut # (Auto) 4000 Lymph # (Auto) 600 L [place] # (Auto) 600 Eos # (Auto) 0 Baso # (Auto) 0 PT INR Sodium 135 L Potassium 4.1 Chloride 102 Carbon Dioxide 24 BUN 24 H Creatinine 0.95 Estimated GFR 58 L BUN/Creatinine Ratio 25.3 H Glucose 122 H Lactate 1.2 Calcium 8.6 Magnesium Total Bilirubin 0.3 AST 52 H ALT 31 Alkaline Phosphatase 44 Total Creatine Kinase CK-MB (CK-2) CK-MB (CK-2) Rel Index Troponin I NT-Pro-B Natriuret Pep Total Protein 6.9 Albumin 4.0 Globulin 2.9 Albumin/Globulin Ratio 1.4 SARS-CoV-2 (PCR) 08/26/21 08/26/21 08/26/21 12:20 12:20 13:10 WBC RBC Hgb Hct MCV MCH MCHC RDW Plt Count Neut % (Auto) Lymph % (Auto) [place] % (Auto) Eos % (Auto) Baso % (Auto) Neut # (Auto) Lymph # (Auto) [place] # (Auto) Eos # (Auto) Baso # (Auto) PT 14.0 H INR 1.2 Sodium Potassium Chloride Carbon Dioxide BUN Creatinine Estimated GFR BUN/Creatinine Ratio Glucose Lactate Calcium Magnesium 2.1 Total Bilirubin AST ALT Alkaline Phosphatase Total Creatine Kinase 55 CK-MB (CK-2) TNP CK-MB (CK-2) Rel Index TNP Troponin I 0.013 NT-Pro-B Natriuret Pep 3270 H Total Protein Albumin Globulin Albumin/Globulin Ratio SARS-CoV-2 (PCR) Positive H Assessment & Plan Assessment & Plan narrative: 1. COVID. Paxlovid not available in the hospital so cannot treat with this. Discussed with pharmacy. Will cancel order. 2. Nausea and vomiting. Provide antiemetics. 3. Diabetes. maintain regular medication. 4. Atrial fibrillation. Continue apixaban. 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 6. HTN. Maintain regular medication. 7. Elevated BNP. Initiate furosemide for a few days. Follow clinically and labs, Time Spent With Patient Critical Care time: I spent a total of [] minutes of critical care time on this patient's care today; this time is exclusive of procedural time. Quality VTE Deep Vein Thrombosis/Pulmonary Embolism Present on Admission: No
--- NOTE | 2021-08-26 18:55 | DI.RAD.S_ITS ---
PROCEDURE: XR PELVIS 1-2V INDICATIONS: Fell twice today-states she feels like she broke something TECHNIQUE: 1 view(s) of the pelvis acquired. COMPARISON: None. FINDINGS: Bones: No fractures or dislocations. No suspicious bony lesions. Mild hip osteoarthritis. Soft tissues: Visualized bowel gas pattern is normal. No suspicious soft tissue calcifications. IMPRESSION: No fracture. No osseous lesion. If symptoms and/or clinical suspicion for pathology persists, further assessment with repeat radiographs (7-10 days) or advanced imaging (e.g. CT, MRI or bone scan) should be considered. Dictated by: Flores Montgomery MD, PhD on 08/26/2021 at 19:27 Approved by: Flores Montgomery MD, PhD on 08/26/2021 at 19:27
[2021-08-26] MEDS: METFORMIN HCL 500 MG TABLET PO (20:14)
[2021-08-26] MEDS: METOPROLOL IR 25 MG TABLET PO (20:14)
[2021-08-26] MEDS: ATORVASTATIN 20 MG TABLET PO (20:14)
[2021-08-26] MEDS: APIXABAN 5 MG TABLET PO (20:14)
[2021-08-26] MEDS: EZETIMIBE 10 MG TABLET PO (20:15)
[2021-08-27 04:00] VITALS: BP 122/62; PULSE 84; RESP 18; TEMP 36.7; O2SAT 94
[2021-08-27 05:26] LABS: Add Manual Diff / Slide Review NO; Basophils Absolute Auto 0 /uL (0-100); Basophils Percent Auto 0.5 % (0-2); Eosinophils Absolute Auto 0 /uL (0-450); Hematocrit 26.3 % (36-46); Lymphocytes Absolute Auto 1000 /uL (1100-4500); Lymphocytes Percent Auto 20.5 % (25-40); Mean Corpuscular HGB Conc 34.3 % (30-36); Mean Corpuscular Volume 84.4 fL (80-100); Monocytes Absolute Auto 500 /uL (0-900); Monocytes Percent Auto 10.4 % (3-14); Neutrophils Absolute Auto 3400 /uL (1500-7000); Neutrophils Percent Auto 68.6 % (50-75); Platelet Count 153 X10^3/uL (150-400); Red Blood Cell Count 3.12 X10^6/uL (4.0-5.2); Red Cell Distribution Width 16.7 % (11.6-14.8)
[2021-08-27 05:36] LABS: Albumin 3.2 g/dL (3.5-5.0); BUN Creatinine Ratio 26.4 (6-22); Blood Urea Nitrogen 24 mg/dL (7-17); Calcium 7.7 mg/dL (8.4-10.2); Carbon Dioxide 23 mmol/L (22-32); Chloride 102 mmol/L (98-107); Estimated Glomerular Filt Rate > 60 mL/min (>60); Glucose 99 mg/dL (80-110); HEMOLYSIS < 15 (0-50); Phosphorous 3.6 mg/dL (2.8-4.1); Potassium 3.7 mmol/L (3.4-5.1); Sodium 131 mmol/L (137-145)
[2021-08-27 08:30] VITALS: BP 127/50; PULSE 68; RESP 17; TEMP 36.4; O2SAT 93
[2021-08-27] MEDS: PANTOPRAZOLE 40 MG VIAL IV (08:45)
[2021-08-27] MEDS: METFORMIN HCL 500 MG TABLET PO ×3 (08:45→21:27)
[2021-08-27] MEDS: APIXABAN 5 MG TABLET PO ×2 (08:45→21:27)
[2021-08-27] MEDS: hydroCHLOROthiazide 25 MG TABLET PO (08:45)
[2021-08-27] MEDS: FUROSEMIDE 20 MG TABLET PO ×2 (08:45→16:34)
[2021-08-27] MEDS: POTASSIUM CHLORIDE 10 MEQ TAB PO (08:45)
[2021-08-27 10:42] VITALS: BP 127/50; PULSE 68
--- NOTE | 2021-08-27 14:10 | P.PN_ITS ---
Subjective Subjective Interval history: Hospitalist daily visit. no N/V. Just weak now. Does not have the strength for normal mobility. Exam Vital Signs (past 8 hours): - 08/27/21 08:30 08/27/21 10:42 Temperature 97.6 F Pulse Rate 68 68 Respiratory Rate 17 Blood Pressure 127/50 L 127/50 L Pulse Oximetry 93 Oxygen Delivery Method Room Air Oxygen Flow Rate 0 Const General: cooperative and comfortable HENMT Head: normal to inspection Resp Auscultation: clear to auscultation bilaterally Cardio Rate: regular rate Rhythm: regular rhythm Heart Sounds: S1 normal and S2 normal GI Inspection: normal to inspection Palpation: soft Neuro General: patient alert and patient oriented x3 Extrem General: normal to inspection Other: has lower extremity weakness that is acute and likely related to COVID. Objective Labs Result Diagrams: 08/27/21 05:10 08/27/21 05:10 Labs: Laboratory Results - last 24 hr 08/27/21 08/27/21 05:10 05:10 WBC 5.0 RBC 3.12 L Hgb 9.0 L Hct 26.3 L MCV 84.4 MCH 29.0 MCHC 34.3 RDW 16.7 H Plt Count 153 Neut % (Auto) 68.6 Lymph % (Auto) 20.5 L [place] % (Auto) 10.4 Eos % (Auto) 0.0 L Baso % (Auto) 0.5 Neut # (Auto) 3400 Lymph # (Auto) 1000 L [place] # (Auto) 500 Eos # (Auto) 0 Baso # (Auto) 0 Sodium 131 L Potassium 3.7 Chloride 102 Carbon Dioxide 23 BUN 24 H Creatinine 0.91 Estimated GFR > 60 BUN/Creatinine Ratio 26.4 H Glucose 99 Calcium 7.7 L Phosphorus 3.6 Albumin 3.2 L PFSH Surgical History H/O hysterectomy with oophorectomy Family History Mother Old age Father Alcoholic dependence syndrome Social History household members: spouse Smoking Status: Former smoker alcohol intake: former Assessment & Plan Assessment & Plan narrative: 1. COVID. Paxlovid not available in the hospital so cannot treat with this. Discussed with pharmacy. Will cancel order. Symptoms improving. No O2 needs. Just weak now. 2. Nausea and vomiting. Provide antiemetics. No N/V now. 3. Diabetes. maintain regular medication. 4. Atrial fibrillation. Continue apixaban. 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 6. HTN. Maintain regular medication. 7. Elevated BNP. Initiate furosemide for a few days. May need to continue as regular med. Continue to evaluate. 8. Lower extremity weakness. Physical Therapy to assess and treat. Follow labs and clinically. Time Spent With Patient Critical Care time: I spent a total of [] minutes of critical care time on this patient's care today; this time is exclusive of procedural time. Quality VTE Deep Vein Thrombosis/Pulmonary Embolism Present on Admission: No
--- NOTE | 2021-08-27 15:20 | PT.IIE ---
Physical Therapy Inpatient Evaluation/Re-Eval M1 PT/OT-IP Prior Functional Status Start: 08/27/21 17:22 Freq: NEEDED Status: Active Protocol: Document 08/27/21 15:20 AB (Rec: 08/27/21 17:35 AB [id number]) Medical Review Prior Functional Status Medical History Reviewed Yes Communication [place]; able to answer questions Mobility and Gait pt stated that she is modified independent with all mobilities and ambulation using SPC Social History Household Members spouse Living Arrangements House Number of Floors (Floors) One Floor Number of Stairs To Enter/Railing? 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 comes in once a month to assist with house cleaning M2 PT-IP Current Condition Start: 08/27/21 17:22 Freq: NEEDED Status: Active Protocol: Document 08/27/21 15:20 AB (Rec: 08/27/21 17:35 AB [id number]) Physical Therapy Current Condition Current Condition Evaluation Date 08/27/21 Treatment Diagnosis Covid; difficulty in walking Onset Date 08/26/21 M3 PT-IP Subjective Start: 08/27/21 17:22 Freq: NEEDED Status: Active Protocol: Document 08/27/21 15:20 AB (Rec: 08/27/21 17:35 AB [email or web address]) Subjective Physical Therapy Visit Type Type Initial Evaluation Visit Start Time 15:20 Visit Stop Time 16:00 Total Visit Minutes 40 Number of NARCOTICS DETECTIVE Visits 0 Physical Therapy Visit Comments Patient Comments I cannot move Therapy Pain Assessment Pain When Pain Assessed At Rest Pain Present Pain Present Pain Reported Location Buttock Intensity 30 Scale Used Numeric (0 - 10) Pain Management Techniques Distraction,Modification of Treatment,Re-positioning, Timing of Activity with Medications M4 PT-IP Mobility and Gait Start: 08/27/21 17:22 Freq: NEEDED Status: Active Protocol: Document 08/27/21 15:20 AB (Rec: 08/27/21 17:35 AB [email or web address]) PT-Bed Mobility Assessment Supine to Sit Supine to Sit Standby Assistance Sit to Supine Sit to Supine Standby Assistance PT-Transfer Assessment Sit to and From Stand Sit to and from Stand Minimal Assistance,1 Person Assistance,Use of Upper Extremities Equipment Transfer Assistive Device Gait Belt,Front Wheeled Walker Orthotic/Prosthetic Devices or Brace: No Transfers Transfer Destination Bedside Commode Transfer Technique ambulated Transfer Ability Level of Assist Minimal Assistance,1 Person Assistance,Use of Upper Extremities Comments Mobility Comments pt initially stated that she cannot move. informed pt that she has to try and agreed. completed supine to sit SBA. able to sit on EOB SBA. completed sit to stand min A and ambulated ~ 10 ft using FWW min A and stated that she needs to use the commode and pt sat on bedside commode. completed sit to stand from the commode mode A and requring CGA for standing balance using FWW for support. pt ambulated ~ 10 ft again back to the bed and refused further ambulation and refused to sit on the chair. stated that she has buttocks pain and wants to go back to bed. completed sit to supine SBA. positioned pt in bed. call light and table placed within reach. pt stated that there is nobody else that can assist her and her spouse at home. informed regarding possible SNF and pt stated that she will talk to her spouse. informed pt that she has to be able to do more and ambulate more to be able to go home and pt understood. Gait Assessment Gait Gait Assistance Required: Minimum Assistance Distance (Feet) 10 Able to Maintain Weight Bearing Status Yes During Gait Assistive Devices Assistive Device Gait Belt,Front Wheeled Walker Orthotic/Prosthetic Devices or Brace: No Gait Deviations General Gait Pattern Decreased Stride Length, Decreased Feet Clearance,Step- to Gait Factors Limiting Gait Function Factors Limiting Gait Function Decreased Activity Tolerance, Decreased Strength,Pain,Poor Balance,Poor Safety Awareness PT-Balance Assessment Sitting Balance and Reactions Static Sitting Balance Ability Good Dynamic Sitting Balance Ability Good Standing Balance and Reactions Static Standing Balance Ability Fair Dynamic Standing Balance Ability Fair Device Used FWW M5 PT-IP Objective Assessments Start: 08/27/21 17:22 Freq: NEEDED Status: Active Protocol: Document 08/27/21 15:20 AB (Rec: 08/27/21 17:35 AB [email or web address]) Orientation Orientation/Cognition Level of Alertness Alert Orientation Name,Place,Situation Language Function Ability Hard of Hearing Safety Awareness Decreased Safety Awareness Memory Description No Deficits Noted Gross Range of Motion Lower Extremity ROM Assessment Within Functional Limits Strength Lower Extremity Strength Hip 4-/5 Knee 4-/5 Sensation Assessment Sensation Gross Sensation WNL Muscle Tone Muscle Tone WNL Yes M6 PT-IP Treatment Start: 08/27/21 17:22 Freq: NEEDED Status: Active Protocol: Document 08/27/21 15:20 AB (Rec: 08/27/21 17:35 AB [email or web address]) Physical Therapy Treatment Education Education Provided Safety M7 PT-IP Assessment and Plan Start: 08/27/21 17:22 Freq: NEEDED Status: Active Protocol: Document 08/27/21 15:20 AB (Rec: 08/27/21 17:35 AB [email or web address]) PT Summary Assessment and Plan Potential Rehabilitation Potential Fair Status of Condition at Evaluation Stable Summary Impairments Pain,ROM,Strength,Balance, Coordination,Sensation,Tone, Cognition,Bed Mobility, Transfers,Gait,Activity Tolerance Assessment Summary pt requiring min A with mobility using FWW and has decrease activity tolerance with c/o buttocks pain. pt also requiring encouragement to participate. Pt live with spouse but spouse will not be able to assist pt and pt is actually the caregiver for her . d/c plan depending on progress but at this time, will require SNF rehab to improve overall strength and mobility independence. Goals Bed Mobility Goal Independent Transfer Goal Independent,Front Wheeled Walker Gait Goal Independent,Front Wheel Walker Gait Distance 200 Other Goals ambulation using SPC SBA 150 ft Days to Meet Goals 10 Frequency of Treatment Frequency Of Treatment Once a Day Treatment Plan Physical Therapy Treatment Plan Bed Mobility Training,Transfer Training,Gait Training, Therapeutic Exercise,Balance Retraining,Discharge Planning, Hot or Cold Pack,Neuromuscular Re-ed,Coordination Retraining Recommendations To Nursing Amount of Assist Needed 1 Person Assist Discharge Recommendations PT Discharge Recommendations Home with 19/10 Assist Available,Home Health,SNF Rehab,Home vs SNF Equipment Needed for Home Before FWW if not safe with SPC Discharge Transportation Needs at Discharge Private Vehicle,Wheelchair/ Cabulance
--- NOTE | 2021-08-27 15:51 | CM.DANOTE ---
Initial DCP Assessment Note Pt is an 85 yo female, resident of [place], arrives COVID+ with N/V and general weakness. Admitted observation for medical management of these symptoms which are improving. PT pending PCP: Tayler Caldera Payer: [facility]/[employer] Reviewed chart, pt discussed in multidisciplinary rounds this morning; patient states she is eager to return home and this [employer] has found no barriers to this plan, PT eval pending d/t patient's complaints of weakness Patient will likely need to DC home w/spouse, very limited availability this time of SNFs that will consider a COVID+ patient, initial infection Will plan to follow closely as medical POC unfolds; r/o need for HH upon DC TY Hollins Discharge Planning/Care Management CM Discharge Assessment Start: 08/27/21 15:45 Freq: Status: Active Protocol: Document 08/27/21 15:45 SIS (Rec: 08/27/21 15:51 SIS [id number]) Discharge Planning Assessment Assigned Pharmacy Grad Intern TY Gomez DPOA/Assigned Designee Name Vincent Holley, spouse Contact Information [phone] Advance Directives? Yes Advance Directives on File No History Provided By Medical Record Prior Living Arrangements House Household Members spouse Type of transporation used prior to Relies on Others admit Independent with ADL's Yes Is patient alert and oriented? Yes Barriers to Discharge No Comment Patient wants to go home Discharge Plan Home Transportation Arrangement Spouse Referrals Initiated None needed
[2021-08-27] MEDS: ACETAMINOPHEN 325 MG TABLET PO (16:31)
[2021-08-27 17:00] VITALS: BP 118/60; PULSE 61; RESP 16; TEMP 36.4; O2SAT 95
[2021-08-27] MEDS: ALBUTEROL 2.5 MG/3 ML NEB (ADULT) INH (19:59)
[2021-08-27 20:14] VITALS: PULSE 69; RESP 16; O2SAT 97
[2021-08-27 21:00] VITALS: BP 118/41; PULSE 69; RESP 17; O2SAT 96
[2021-08-27] MEDS: ATORVASTATIN 20 MG TABLET PO (21:27)
[2021-08-27] MEDS: EZETIMIBE 10 MG TABLET PO (21:27)
[2021-08-27] MEDS: PANTOPRAZOLE DR 40 MG TABLET PO (21:29)
[2021-08-28] VITALS (7 sets, daily range): BP systolic 105–140; BP diastolic 46–65; PULSE 55–86; RESP 16–17; TEMP 36.1–36.2; O2SAT 93–96
[2021-08-28 05:36] LABS: Add Manual Diff / Slide Review NO; Basophils Absolute Auto 0 /uL (0-100); Basophils Percent Auto 0.5 % (0-2); Eosinophils Absolute Auto 0 /uL (0-450); Eosinophils Percent Auto 0.3 % (2-4); Hematocrit 30.1 % (36-46); Hemoglobin 10.4 g/dL (12.0-16.0); Lymphocytes Absolute Auto 1000 /uL (1100-4500); Lymphocytes Percent Auto 20.9 % (25-40); Mean Corpuscular HGB Conc 34.4 % (30-36); Mean Corpuscular Hemoglobin 28.7 PG (26-34); Mean Corpuscular Volume 83.5 fL (80-100); Monocytes Absolute Auto 500 /uL (0-900); Monocytes Percent Auto 11.1 % (3-14); Neutrophils Absolute Auto 3200 /uL (1500-7000); Neutrophils Percent Auto 67.2 % (50-75); Platelet Count 171 X10^3/uL (150-400); Red Blood Cell Count 3.61 X10^6/uL (4.0-5.2); Red Cell Distribution Width 16.5 % (11.6-14.8); White Blood Cell Count 4.8 X10^3/uL (4.5-11.0)
[2021-08-28 05:47] LABS: Albumin 3.7 g/dL (3.5-5.0); BUN Creatinine Ratio 28.5 (6-22); Blood Urea Nitrogen 37 mg/dL (7-17); C-Reactive Protein Quant 4.4 mg/dL (<1.0); Carbon Dioxide 27 mmol/L (22-32); Chloride 98 mmol/L (98-107); Estimated Glomerular Filt Rate 40 mL/min (>60); Glucose 94 mg/dL (80-110); HEMOLYSIS < 15 (0-50); Phosphorous 5.3 mg/dL (2.8-4.1); Potassium 3.6 mmol/L (3.4-5.1); Sodium 134 mmol/L (137-145)
[2021-08-28] MEDS: POTASSIUM CHLORIDE 10 MEQ TAB PO (08:11)
[2021-08-28] MEDS: lisinopriL 10 MG TABLET PO (08:11)
[2021-08-28] MEDS: FUROSEMIDE 20 MG TABLET PO ×2 (08:11→16:51)
[2021-08-28] MEDS: METOPROLOL IR 25 MG TABLET PO ×2 (08:11→22:05)
[2021-08-28] MEDS: hydroCHLOROthiazide 25 MG TABLET PO (08:11)
[2021-08-28] MEDS: METFORMIN HCL 500 MG TABLET PO ×3 (08:11→22:05)
[2021-08-28] MEDS: APIXABAN 5 MG TABLET PO ×2 (08:11→22:04)
[2021-08-28] MEDS: PANTOPRAZOLE DR 40 MG TABLET PO ×2 (08:11→22:09)
--- NOTE | 2021-08-28 10:09 | DIET.CONS2 ---
Dietary Inpatient Consultation Note Admission Date: 08/26/2021 15:00 RD screened covid+ patient for advanced age and poor POs. Sending ONS glucerna bid to support nutrition status as pt feeling weak. Diet: 08/26/21 Dinner Carbohydrate Consistent Diet Diet Modifications: Safety Tray needed?: No Carbohydrate level: Medium (3 CHO) 08/27/21 Lunch Carbohydrate Consistent Diet Diet Modifications: glucerna bid Safety Tray needed?: No Carbohydrate level: Medium (3 CHO) Nutrition Percent Meal Consumed refused lunch 08/27/21 12:30 Percent Meal Consumed 50% 08/27/21 09:38 Electronically Signed by: Vinita Ely 08/28/21 10:09 Clinical Dietitian [address] [address]
--- NOTE | 2021-08-28 11:46 | CM.DPNOTE ---
Addendum entered by TY Baez 08/28/21 12:59: ADD: Placed call to the following caregiver agencies on patient and spouse's behalf : [facility], [facility], [facility], [facility], [facility], [employer], [facility], [facility], [facility]. No availability secured yet Original Note: DCP Note PT recommends SNF Placed call into patient's room, discussed Dispo options. Reviewed [facility], patient remains observation status per UR RN Keli Patient states she has been caring for her spouse for two years and she has never discussed increasing cg support until today. Patient/spouse pay a friend for assist w/house cleaning once per week, this person cannot increase her assist; patient states spouse cannot assist her upon DC and asks how she will get help (?) No family or friends available Discussed C19+ as a barrier to SNF placement Discussed home w/ HH and in home caregivers, private payment. Patient states I'll have to This [employer] now beginning calls to in home cg agencies, starting with [facility], had to [facility]
--- NOTE | 2021-08-28 14:04 | PT.IPTN ---
Physical Therapy Treatment Note M2 PT-IP Current Condition Start: 08/27/21 17:22 Freq: NEEDED Status: Active Protocol: Document 08/28/21 13:38 SP (Rec: 08/28/21 14:32 SP [id number]) Physical Therapy Current Condition Current Condition Evaluation Date 08/27/21 Treatment Diagnosis Covid; difficulty in walking Onset Date 08/26/21 M3 PT-IP Subjective Start: 08/27/21 17:22 Freq: NEEDED Status: Active Protocol: Document 08/28/21 13:38 SP (Rec: 08/28/21 14:32 SP [id number]) Subjective Physical Therapy Visit Type Type Treatment Note Visit Start Time 13:38 Visit Stop Time 14:04 Total Visit Minutes 26 Notes Pt hypotensive symptomatic during tx. Vitals: supine: BP 97/40s, HR 58 seated EOB: 90/40s HR mid 68s Standing EOB w/ FWW: 88/low 40s HR low 80s return to supine: 1 min 109/ 50s Number of PREPRESS PROOFER Visits 1 Physical Therapy Visit Comments Patient Comments My buttocks hurts alot, I fell on it. Pt agreeable to working with therapy. Patient Goals Get stronger to go home to help my . Therapy Pain Assessment Pain When Pain Assessed At Rest Pain Present Pain Present Pain Reported Location Buttock Intensity 8 Scale Used Numeric (0 - 10) Description Acute,With Movement Pain Behaviors Facial Grimacing,Guarding, Restlessness,Wincing Pain Management Techniques Distraction,Modification of Treatment,Re-positioning, Timing of Activity with Medications M4 PT-IP Mobility and Gait Start: 08/27/21 17:22 Freq: NEEDED Status: Active Protocol: Document 08/28/21 13:38 SP (Rec: 08/28/21 14:32 SP [id number]) PT-Bed Mobility Assessment Rolling Type of Rolling Log Rolling,Roll to Right Level of Assist Contact Guard Assistance Supine to Sit Supine to Sit Contact Guard Assistance, Bedrails Sit to Supine Sit to Supine Standby Assistance,Bedrails Scooting Scooting to Edge of Bed Standby Assistance PT-Transfer Assessment Sit to and From Stand Sit to and from Stand Contact Guard Assistance,1 Person Assistance,Use of Upper Extremities Equipment Transfer Assistive Device Gait Belt,Front Wheeled Walker Orthotic/Prosthetic Devices or Brace: No Transfers Transfer Destination Bed Transfer Technique lateral side step toward HOB Transfer Ability Level of Assist Contact Guard Assistance,1 Person Assistance,Use of Upper Extremities Comments Mobility Comments PREPRESS PROOFER ed on LR for decreased pressure on sacrum, CGA and bed rail required, was provided waffle cushion end tx with good feedback response ( nursing acquired for PREPRESS PROOFER). R SL>sit, scoot to EOB CGA with UE effort and use bed rail to EOB with reports and wincing pain over sacrum region. sit EOB vital assessment decreased but non symptomatic. SIt> Stand CGA-5%A w/ FWW, decrease BP with increasing dizziness with request need to sit feeling nausious and dizziness worsening while noted unsteady BLE. Pt returned to sit at EOB good UE support CGA then immediate return to supine with waffle cushion under pelvis, sBA. Pt BP improved to more stable level and dizziness dissipated. Pt educated importance of mobility with safe vitals, importance of hydration and nutrition for energy to mobilize. PREPRESS PROOFER notified nursing and Hospitalist lack of mobility progress this tx. Will continue to assess tomorrow. Gait Assessment Gait Gait Assistance Required: Contact Guard Assist,Minimum Assistance Distance (Feet) 1 Able to Maintain Weight Bearing Status Yes During Gait Assistive Devices Assistive Device Gait Belt,Front Wheeled Walker Orthotic/Prosthetic Devices or Brace: No Gait Deviations General Gait Pattern Decreased Stride Length, Decreased Feet Clearance,Step- to Gait Factors Limiting Gait Function Factors Limiting Gait Function Decreased Activity Tolerance, Decreased Strength,Pain Comments Gait Comments Unable to progress further than side stepping toward HOB due to nausea and dizziness, noted unsteadiness in BLE, Min UE support on FWW. Stair Climbing Assessment Comments Stair Climbing Comments no stairs need to assess. PT-Balance Assessment Sitting Balance and Reactions Static Sitting Balance Ability Good Dynamic Sitting Balance Ability Good Standing Balance and Reactions Static Standing Balance Ability Fair Dynamic Standing Balance Ability Poor Device Used FWW M5 PT-IP Objective Assessments Start: 08/27/21 17:22 Freq: NEEDED Status: Active Protocol: Document 08/27/21 15:20 AB (Rec: 08/27/21 17:35 AB [id number]) Orientation Orientation/Cognition Level of Alertness Alert Orientation Name,Place,Situation Language Function Ability Hard of Hearing Safety Awareness Decreased Safety Awareness Memory Description No Deficits Noted Gross Range of Motion Lower Extremity ROM Assessment Within Functional Limits Strength Lower Extremity Strength Hip 4-/5 Knee 4-/5 Sensation Assessment Sensation Gross Sensation WNL Muscle Tone Muscle Tone WNL Yes M6 PT-IP Treatment Start: 08/27/21 17:22 Freq: NEEDED Status: Active Protocol: Document 08/28/21 13:38 SP (Rec: 08/28/21 14:32 SP [id number]) Physical Therapy Treatment Exercises Exercises Ankle Pumps,Heel Slides,Seated Knee Flexion/Extension M7 PT-IP Assessment and Plan Start: 08/27/21 17:22 Freq: NEEDED Status: Active Protocol: Document 08/28/21 13:38 SP (Rec: 08/28/21 14:32 SP [id number]) PT Summary Assessment and Plan Potential Rehabilitation Potential Fair Status of Condition at Evaluation Stable Summary Impairments Pain,ROM,Strength,Balance, Coordination,Sensation,Tone, Cognition,Bed Mobility, Transfers,Gait,Activity Tolerance Progress Towards Goals Slow Progress due to Pain,Slow Progress due to Medical Issues,Slow Progress due to Activity Tolerance Assessment Summary Pt experienced hypotension with position changes and became symptomatic during standing to unsafe unsteadiness and nausea need to return to bed. Supine>sit CGA, scoot SBA with use of bed rails, sit>stand CGA- 5%A became unsteady due to dizziness in standing during orthostatic assessment w/ FWW, sidestep w/ FWW CGA- 5%A. Unsafe to progress mobility this afternoon. Recommending SNF vs 19/10 available. Will continue to assess progress tomorrow. Goals Bed Mobility Goal Independent Transfer Goal Independent,Front Wheeled Walker Gait Goal Independent,Front Wheel Walker Gait Distance 200 Other Goals ambulation using SPC SBA 150 ft Days to Meet Goals 10 Frequency of Treatment Frequency Of Treatment Once a Day Treatment Plan Physical Therapy Treatment Plan Bed Mobility Training,Transfer Training,Gait Training, Therapeutic Exercise,Balance Retraining,Discharge Planning, Hot or Cold Pack,Neuromuscular Re-ed,Coordination Retraining Other Recommendations and Next Treatment Check orthostatic BP, bedmob, Focus transfers, gait fWW vs SPC trial, balance activities. Recommendations To Nursing Amount of Assist Needed 1 Person Assist Discharge Recommendations PT Discharge Recommendations Home with 19/10 Assist Available,Home Health,SNF Rehab,Home vs SNF Equipment Needed for Home Before FWW if not safe with SPC Discharge Transportation Needs at Discharge Private Vehicle,Wheelchair/ Cabulance
--- NOTE | 2021-08-28 18:59 | PC.NURSE ---
Pt is AxOx4, cooperative and SBA with commode. VSS, pt denies pain. BG-91/97 and pt is eating well. Continued droplet precaution. No other changes. Lungs clear, no cough or sore throat symptoms. Continue monitor.
[2021-08-28] MEDS: ALBUTEROL 2.5 MG/3 ML NEB (ADULT) INH (19:07)
--- NOTE | 2021-08-28 19:08 | P.PN_ITS ---
Subjective Subjective Interval history: Hospitalist daily visit. Patient gets up she gets dizzy and her blood pressure is on the low side. I would generally soft. Persistent weakness of the lower extremities. other complaints. Exam Vital Signs (past 8 hours): - 08/28/21 17:00 Temperature 97.2 F L Pulse Rate 59 L Respiratory Rate 16 Blood Pressure 105/54 L Pulse Oximetry 95 Oxygen Delivery Method Room Air Oxygen Flow Rate 0 Narrative Exam Narrative: Patient appears in no acute distress. Patient alert and oriented. HEENT: Pupils equal reactive to light patient wears glasses. Extraocular movements are normal. Cardiovascular: Heart sounds S1 and S2 Respiratory: Chest is clear to auscultation Gastrointestinal: Abdomen is soft. Nontender. Bowel sounds normal. Musculoskeletal: Able to move all extremities volitionally no specific localized redness of also has general weakness of the lower extremities. Neuro: Normal sensation of all extremities. Objective Labs Result Diagrams: 08/28/21 05:19 08/28/21 05:19 Labs: Laboratory Results - last 24 hr 08/28/21 08/28/21 05:19 05:19 WBC 4.8 RBC 3.61 L Hgb 10.4 L Hct 30.1 L MCV 83.5 MCH 28.7 MCHC 34.4 RDW 16.5 H Plt Count 171 Neut % (Auto) 67.2 Lymph % (Auto) 20.9 L [place] % (Auto) 11.1 Eos % (Auto) 0.3 L Baso % (Auto) 0.5 Neut # (Auto) 3200 Lymph # (Auto) 1000 L [place] # (Auto) 500 Eos # (Auto) 0 Baso # (Auto) 0 Sodium 134 L Potassium 3.6 Chloride 98 Carbon Dioxide 27 BUN 37 H Creatinine 1.30 H Estimated GFR 40 L BUN/Creatinine Ratio 28.5 H Glucose 94 Calcium 8.0 L Phosphorus 5.3 H D C-Reactive Protein 4.4 H Albumin 3.7 PFSH Surgical History H/O hysterectomy with oophorectomy Family History Mother Old age Father Alcoholic dependence syndrome Social History household members: spouse Smoking Status: Former smoker alcohol intake: former Assessment & Plan Assessment & Plan narrative: 1. COVID. Symptoms improving. No O2 needs. Just weak with dizziness getting up and drop in blood pressure. 2. Nausea and vomiting. No N/V now. 3. Diabetes. maintain regular medication. 4. Atrial fibrillation. Continue apixaban. 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 6. HTN. Maintain regular medication. Will hold diuretic and provide intravenous fluids for 1 L to help soft BP. 7. Elevated BNP. Furosemide was initiated for a few days. Stop medication. 8. Lower extremity weakness. Physical Therapy to continue. Time Spent With Patient Critical Care time: I spent a total of [] minutes of critical care time on this patient's care today; this time is exclusive of procedural time. Quality VTE Deep Vein Thrombosis/Pulmonary Embolism Present on Admission: No
[2021-08-28] MEDS: ATORVASTATIN 20 MG TABLET PO (22:05)
[2021-08-28] MEDS: SODIUM CHLORIDE 0.9% FLUSH 10 ML IV (22:08)
[2021-08-28] MEDS: EZETIMIBE 10 MG TABLET PO (22:08)
[2021-08-29] VITALS (8 sets, daily range): BP systolic 94–132; BP diastolic 34–53; PULSE 47–93; RESP 15–18; TEMP 35.8–36.6; O2SAT 92–95
[2021-08-29] MEDS: PANTOPRAZOLE DR 40 MG TABLET PO ×2 (06:38→21:19)
[2021-08-29] MEDS: APIXABAN 5 MG TABLET PO ×2 (09:01→21:18)
[2021-08-29] MEDS: POTASSIUM CHLORIDE 10 MEQ TAB PO (09:01)
[2021-08-29] MEDS: METFORMIN HCL 500 MG TABLET PO ×3 (09:01→21:18)
[2021-08-29] MEDS: SODIUM CHLORIDE 0.9% FLUSH 10 ML IV ×2 (09:02→21:48)
--- NOTE | 2021-08-29 11:10 | PT.IPTN ---
Physical Therapy Treatment Note M2 PT-IP Current Condition Start: 08/27/21 17:22 Freq: NEEDED Status: Active Protocol: Document 08/29/21 10:28 SP (Rec: 08/29/21 13:03 SP [id number]) Physical Therapy Current Condition Current Condition Evaluation Date 08/27/21 Treatment Diagnosis Covid; difficulty in walking Onset Date 08/26/21 M3 PT-IP Subjective Start: 08/27/21 17:22 Freq: NEEDED Status: Active Protocol: Document 08/29/21 10:28 SP (Rec: 08/29/21 13:03 SP [id number]) Subjective Physical Therapy Visit Type Type Treatment Note Visit Start Time 10:28 Visit Stop Time 11:10 Total Visit Minutes 42 Notes Pt hypotensive and symptomatic end tx during standign and didnt' improve much once recline in chair. Nursing notified. VItals taken during tx: supine: BP 105/42 HR 58 seated on BSC: 121/44 HR 64 Reported little dizzy during gait, increased dizziness post STS and standing balance assessment: BP 99/38 HR 58 Reclined in chair 4 min increased symptoms: 89/44 HR 57 Supine: 104/42 HR 51 Number of ASSISTANT BOILER OPERATOR Visits 2 Physical Therapy Visit Comments Patient Comments Pt reports buttock better 6/10 since use of waffle cushion but c/o pain over posterior neck now and not sure why, Notified nursing and care mgt. Patient Goals Get dizziness to step, get stronger to go home and get caregivers to come help her and her . Therapy Pain Assessment Pain When Pain Assessed During Mobility Pain Present Pain Present Pain Reported Location posterior neck Intensity 6 Scale Used Numeric (0 - 10) Description Spasm,With Movement Pain Behaviors Facial Grimacing,Holding Area, Restlessness Pain Management Techniques Distraction,Modification of Treatment,Re-positioning Buttock Intensity 6 Scale Used Numeric (0 - 10) Description Dull,Tender,With Movement Pain Behaviors Facial Grimacing Pain Management Techniques Distraction,Modification of Treatment,Re-positioning M4 PT-IP Mobility and Gait Start: 08/27/21 17:22 Freq: NEEDED Status: Active Protocol: Document 08/29/21 10:28 SP (Rec: 08/29/21 13:03 SP [id number]) PT-Bed Mobility Assessment Rolling Type of Rolling Log Rolling,Roll to Right Level of Assist Standby Assistance,Contact Guard Assistance Supine to Sit Supine to Sit Minimal Assistance,1 Person Assistance Sit to Supine Sit to Supine Contact Guard Assistance, Bedrails Scooting Scooting to Edge of Bed Standby Assistance Scooting Up and Down in Bed Standby Assistance PT-Transfer Assessment Sit to and From Stand Sit to and from Stand Contact Guard Assistance,1 Person Assistance,Use of Upper Extremities Equipment Transfer Assistive Device Gait Belt,Front Wheeled Walker Orthotic/Prosthetic Devices or Brace: No Transfers Transfer Destination Bed,Chair,Bedside Commode Transfer Technique gait w/ fww Transfer Ability Level of Assist Contact Guard Assistance, Minimal Assistance,1 Person Assistance,Use of Upper Extremities Comments Mobility Comments Instructed BLE AP, HS for premobility circulation and ROM strengthening. SBA LR R> sit trunk righting required Min A to pulled from therapist hand, scoot to EOB SBA. SIt> stand CGA, SPT to BSC w/ FWW CGA-5%A little unsteady trunk sways. Very small amount voided and self pericare in sitting. Sit>stand self brief mgt. Gait around room using FWW 30 ft CGA-5%A trunk sway and decrease RLE stance time with increase LLE descend heel strike especially during turns. Pt requested to return to her chair due to little dizziness. CGA with cues for FWW positioned full back to front chair and reaching back controlled descend to sit. Brief sit dizziness deminished . Agreeable to STS from chair for safety strategies and strengthening x3 reps then static stand feet 3 apart EO stand unsupported 30 sec little trunk sway but no LOB or contact needed. She reported feeling nauseous and need sit. BP assessed and noted hyptension 99/38. 4 min rest and reclined in chair, stated still didn't feel better, reassessed and BP decreased further 89/44. ASSISTANT BOILER OPERATOR recommended for safety return to bed CGA Sit>stand>SPT to bed, Sit>supine CGA. Pt's BP recovered within 1 min see above without symptoms. Pt had call light, bed alarmed and all needs in reach. Recommending further assessment in BP hypotensive and not safe to return home at this time, SNF vs HHPT with / caregivers. Pt requested care mgt to come give feedback on placement and assist when safe to DC. Gait Assessment Gait Gait Assistance Required: Contact Guard Assist,Minimum Assistance Distance (Feet) 30 Able to Maintain Weight Bearing Status Yes During Gait Assistive Devices Assistive Device Gait Belt,Front Wheeled Walker Orthotic/Prosthetic Devices or Brace: No Gait Deviations General Gait Pattern Antalgic,Decreased Stride Length,Decreased Feet Clearance,Lateral Trunk Lean Factors Limiting Gait Function Factors Limiting Gait Function Decreased Activity Tolerance, Decreased Strength,Difficulty Following Directions,Pain,Poor Balance,Poor Safety Awareness Comments Gait Comments see mobility comments Stair Climbing Assessment Comments Stair Climbing Comments no stairs need to assess. PT-Balance Assessment Sitting Balance and Reactions Static Sitting Balance Ability Good Dynamic Sitting Balance Ability Good Standing Balance and Reactions Static Standing Balance Ability Good Dynamic Standing Balance Ability Fair Device Used FWW Comments Other Balance Tests/Deviations/Treatment standing balance 3 between : BLE EO 30 sec little trunk sway but self recovery without contact support. Functional Assessments Functional Tests 5 Times Sit to Stand 3 reps before couldn't progress and c/o increase dizz . Other Functional Tests Performed EO WBOS 3 apart unsupported. M5 PT-IP Objective Assessments Start: 08/27/21 17:22 Freq: NEEDED Status: Active Protocol: Document 08/27/21 15:20 AB (Rec: 08/27/21 17:35 AB [id number]) Orientation Orientation/Cognition Level of Alertness Alert Orientation Name,Place,Situation Language Function Ability Hard of Hearing Safety Awareness Decreased Safety Awareness Memory Description No Deficits Noted Gross Range of Motion Lower Extremity ROM Assessment Within Functional Limits Strength Lower Extremity Strength Hip 4-/5 Knee 4-/5 Sensation Assessment Sensation Gross Sensation WNL Muscle Tone Muscle Tone WNL Yes M6 PT-IP Treatment Start: 08/27/21 17:22 Freq: NEEDED Status: Active Protocol: Document 08/29/21 10:28 SP (Rec: 08/29/21 13:03 SP [id number]) Physical Therapy Treatment Exercises Exercises Ankle Pumps,Heel Slides Other Treatments Other Treatment Performed seated HRTR, may, LAQ- x5 reps each M7 PT-IP Assessment and Plan Start: 08/27/21 17:22 Freq: NEEDED Status: Active Protocol: Document 08/29/21 10:28 SP (Rec: 08/29/21 13:03 SP [id number]) PT Summary Assessment and Plan Potential Rehabilitation Potential Fair Status of Condition at Evaluation Stable Summary Impairments Pain,ROM,Strength,Balance, Coordination,Sensation,Tone, Cognition,Bed Mobility, Transfers,Gait,Activity Tolerance Progress Towards Goals Slow Progress due to Pain,Slow Progress due to Medical Issues,Slow Progress due to Activity Tolerance Assessment Summary Pt experienced hypotension with increased standing mobility with progressive symptoms dizziness and nausea need to sit. Supine>sit Min, scoot SBA, sit>stand CGA, transfers and gait CG- 5%A w/ FWW. Pt required return to bed end tx due to progressive hypotensive reclined in chair with dizziness symptoms. Improved safe and no symptoms once in supine. Pt not safe to return home at this time due to hypotensive with progressive standing mobility today. Recommending SNF vs available with caregivers for her and , she is his caregiver. Will continue to assess progress tomorrow. Pt agreeable and will need FWW and hospital to dispense when safe to return home. Goals Bed Mobility Goal Independent Transfer Goal Independent,Front Wheeled Walker Gait Goal Independent,Front Wheel Walker Gait Distance 200 Other Goals ambulation using SPC SBA 150 ft Days to Meet Goals 10 Frequency of Treatment Frequency Of Treatment Once a Day Treatment Plan Physical Therapy Treatment Plan Bed Mobility Training,Transfer Training,Gait Training, Therapeutic Exercise,Balance Retraining,Discharge Planning, Hot or Cold Pack,Neuromuscular Re-ed,Coordination Retraining Other Recommendations and Next Treatment Check orthostatic BP, bed mob, Focus transfers, gait w/ SPC if safe. Further balance assessment. Recommendations To Nursing Amount of Assist Needed 1 Person Assist Discharge Recommendations PT Discharge Recommendations Home with 19/10 Assist Available,Home Health,SNF Rehab,Home vs SNF Equipment Needed for Home Before FWW if not safe with SPC Discharge Transportation Needs at Discharge Private Vehicle,Wheelchair/ Cabulance
--- NOTE | 2021-08-29 17:29 | PM.PN.1 ---
Subjective Subjective Interval history: Daily hospitalists visit. Patient feels like she is getting better but and is able to move around the room better. However still gets short of breath and slight dizziness when up. Is hoping that tomorrow will be a better day. Exam Vital Signs (past 8 hours): - 08/29/21 12:10 Temperature 97.6 F Pulse Rate 58 L Respiratory Rate 15 Blood Pressure 104/42 L Pulse Oximetry 92 Oxygen Delivery Method Room Air Oxygen Flow Rate 0 Narrative Exam Narrative: Patient alert and oriented. Get somewhat lightheaded and dizzy when up and about in the room. HEENT: Patient wearing glasses. Pupils equal react to light. Extraocular movement normal. Cardiovascular: Heart sounds normal. Respiratory: Clear to auscultation. Gastrointestinal: Bowel sounds normal. Soft nontender. Musculoskeletal: Able to move all extremities volitionally. weakness when up walking with the lower extremities. Objective Labs Result Diagrams: 08/28/21 05:19 08/28/21 05:19 [facility] Surgical History H/O hysterectomy with oophorectomy Family History Mother Old age Father Alcoholic dependence syndrome Social History household members: spouse Smoking Status: Former smoker alcohol intake: former Assessment & Plan Assessment & Plan narrative: 1. COVID. Symptoms improving. No O2 need. Just weak with dizziness getting up and drop in blood pressure. Blood pressure soft. Medication has been held for blood pressure. 2. Nausea and vomiting.? No N/V now. 3. Diabetes. maintain regular medication. 4. Atrial fibrillation. Continue apixaban. Also metoprolol but pulses very low. Will hold to see if that helps with blood pressure problem. Have it to restart on August 31, 2021 but this may need to be discontinued. 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 6. HTN.? Blood pressure remains soft. Hold metoprolol as well. Diuretics have already been held. 7. Elevated BNP. Furosemide was initiated for a few days.? Stop medication.? 8. Lower extremity weakness. Physical Therapy to continue. Time Spent With Patient Critical Care time: I spent a total of [] minutes of critical care time on this patient's care today; this time is exclusive of procedural time. Quality VTE Deep Vein Thrombosis/Pulmonary Embolism Present on Admission: No
[2021-08-29] MEDS: ONDANSETRON 4 MG ODT SL (18:15)
--- NOTE | 2021-08-29 18:29 | PC.NURSE ---
Pt is AxoX4, pleasant and needs 1 person assistance with FWW. VSS except BP slightly soft and HR is tran so Lisinopril and Metoprolol held. BG-97/132 and pt is eating well as usual. Pt c/o feeling nausea around 1800 so PRN PO Zofran given and still waiting result. Pt uses bedside commode with 1 person assistance and pt is doing well but still need assistance due to weakness. Pt is very concerned about her finding place when d/c hospital bc of financially she can't afford many of those places as she said. Otherwise, no problem. Continued droplet precaution.
[2021-08-29] MEDS: ALBUTEROL 2.5 MG/3 ML NEB (ADULT) INH (20:11)
[2021-08-29] MEDS: EZETIMIBE 10 MG TABLET PO (21:17)
[2021-08-29] MEDS: ATORVASTATIN 20 MG TABLET PO (21:18)
[2021-08-30] MEDS: PANTOPRAZOLE DR 40 MG TABLET PO (06:12)
[2021-08-30 06:48] VITALS: BP 113/43; PULSE 64; RESP 20; TEMP 36.4; O2SAT 93
[2021-08-30] MEDS: METFORMIN HCL 500 MG TABLET PO (08:05)
[2021-08-30] MEDS: POTASSIUM CHLORIDE 10 MEQ TAB PO (08:05)
[2021-08-30] MEDS: APIXABAN 5 MG TABLET PO (08:05)
[2021-08-30] MEDS: SODIUM CHLORIDE 0.9% FLUSH 10 ML IV (08:06)
[2021-08-30 09:42] VITALS: BP 122/37; PULSE 62; RESP 16; TEMP 36.2; O2SAT 94
--- NOTE | 2021-08-30 12:47 | PT-IP ANOTE ---
Dispensed FWW for home use. No charge.
--- NOTE | 2021-08-30 12:51 | CM.DPNOTE ---
Addendum entered by TY Baez 08/30/21 13:42: ADD: Patient now requests BLS transport. Discussed potential for out of pocket cost. BLS arranged through [facility] for 1400 p/u, NICHOLAS Corbin aware. BLS form completed and signed by Dr Wil ALEGRE Original Note: DC Note Patient discharging home today. Placed call into room to review DCP This DIRECTOR SUPPLY CHAIN connected patient with rep from [facility] yesterday; patient says she cannot afford the $40+ per hour it costs for in home care and will return home today w/spouse; requests HH, reviewed [facility] choice list and no agency preference Patient calling her spouse...who will contact one of their friends to arrange transport home Faxed new HH referral to [facility] per calendar rotation, completed F2F, HH order, face sheet, H+P, no DC Summary available Plan: DC home today via family/friend pocelia hung services RN/PT/OT/SEO ENGINEER, close outpatient f/u [facility]
--- NOTE | 2021-08-30 15:58 | PC.NURSE ---
Pt readied for d/c and transport via Ambulance to home. Pt belongings accounted for and packed. Walker supplied. IV d/c'd intact. Pt dressed and ready. Picked up by [facility] at 14:27.
--- NOTE | 2021-08-30 16:48 | PM.DS.1 ---
History of Present Illness History of Present Illness Chief complaint: COVID sx,nausea and weakness Narrative: 85-year-old female former smoker with history of type 2 diabetes, hypertension, hyperlipidemia and TIA presents with her in the chief complaint increasing weakness over the past few days along with dry and hacking cough, subjective fever and multiple episodes of nausea and vomiting.? She has had at least 2 falls but very clearly denies any head injury.? She states that the falls were because her legs were both sufficiently week to not support her weight.? She denies any significant shortness of breath.? She is immunized against COVID.? She states that she has had poor appetite and very little oral intake over the past few days. COVID PCR is positive. Discharge Providers Provider Date of admission: 08/26/21 15:00 Discharge Date: 08/30/21 Primary care physician: Tayler Caldera PA-C Consults: 08/27/21 14:10 Consult to Physical Therapy Evaluate & Treat Comment: Mobilize to baseline Physician Instructions: Evaluate and Treat 08/27/21 14:21 Consult to Physical Therapy Evaluate & Treat Comment: Assess and treat and improve to baseline mobility. Physician Instructions: Evaluate and Treat 08/30/21 12:06 Consult to Home Health Routine Comment: Reason For Exam: hospital f/u, HHN, PT and OT 08/30/21 12:15 Consult to Physical Therapy Evaluate & Treat Comment: needs Front wheel walker. Physician Instructions: Evaluate and Treat Discharge provider: Romero De La Torre MD Summary Hospital Course Discharge Diagnosis: 1. COVID-19 infection without respiratory failure 2. Nausea vomiting resolved 3. Type 2 diabetes 4. History of atrial fibrillation Hospital Course: Patient admitted due to active COVID causing decreased appetite, nausea, vomiting and weakness, and mild hypotension. She was managed with supportive therapy. She was seen by PT and OT in hospital. Symptoms have improved to where she can return home. She actually had not been taking any of her antihypertensives prior to admission and these were permanently discontinued. Her heart rate seems to be staying controlled without metoprolol. Also we reduced her apixaban dose based on age and weight. Status at Discharge Cognitive/behavioral status at discharge: oriented Functional status at discharge: independent ambulation Overall status at discharge: patient is progressing back to baseline Time Spent with Patient Time spent: Less than 30 minutes Exam Vital Signs (past 8 hours): - 08/30/21 09:42 Temperature 97.2 F L Pulse Rate 62 Respiratory Rate 16 Blood Pressure 122/37 L Pulse Oximetry 94 Oxygen Delivery Method Room Air Oxygen Flow Rate 0 Narrative Exam Narrative: General: Alert comfortable-appearing female NAD Lungs: Clear Heart: Regular rhythm Extremities: No edema Neurological: Speech normal, affect normal Objective Labs Result Diagrams: 08/28/21 05:19 08/28/21 05:19 [facility] Surgical History H/O hysterectomy with oophorectomy Family History Mother Old age Father Alcoholic dependence syndrome Social History household members: spouse Smoking Status: Former smoker alcohol intake: former Discharge Plan Discharge Plan Patient Disposition: Home Provider Discharge Comment: Please update home medication list which you carry with you. We have reduced your apixaban dose based on age and body weight. Nursing Discharge Comment: Discharge via BLS. Needs walker. Discharge orders & Medications Prescriptions: New Eliquis 2.5 mg tablet 2.5 mg PO BID Qty: 60 0RF Continued metformin 500 mg Tablet 500 mg PO TID 0RF ezetimibe-simvastatin 10-40 mg Tablet 1 tab PO QPM 0RF albuterol sulfate [ProAir HFA] 90 mcg/actuation HFA aerosol inhaler 90 mcg INHALATION QPM 0RF Discontinued lisinopril 10 mg Tablet 10 mg PO QAM 0RF hydrochlorothiazide 25 mg Tablet 25 mg PO DAILY 0RF metoprolol tartrate 25 mg Tablet 25 mg PO BID 0RF potassium chloride [Klor-Con 10] 10 mEq tablet extended release 10 meq PO DAILY 0RF Eliquis 5 mg tablet 5 mg PO BID 0RF Follow up/Referrals: Tayler Caldera PA-C [Primary Care Provider] - Diet/Activity/Treatments Diet: Regular Discharge Data Primary Care Provider: Tayler Caldera Attending Provider: Emelia Carrero VTE Deep Vein Thrombosis/Pulmonary Embolism Present on Admission: No
== END 2021-08-30 14:27 | disposition home health service (06) | DRG 179 ==
LOC: ED 11:43 → AC 15:00
PROVIDERS: Admitting Provider Neuromusculoskeletal Medicine, Sports Medicine; Emergency Provider Emergency Medicine; PCP Physician Assistant Medical; Referring Provider Emergency Medicine; Visit Provider Neuromusculoskeletal Medicine, Sports Medicine
DX: U07.1 COVID-19 (principal); I48.91 Unspecified atrial fibrillation; E11.9 Type 2 diabetes mellitus without complications; I10 Essential (primary) hypertension; R79.89 Other specified abnormal findings of blood chemistry; E78.5 Hyperlipidemia, unspecified; J45.909 Unspecified asthma, uncomplicated; I95.9 Hypotension, unspecified; Z79.01 Long term (current) use of anticoagulants; Z79.84 Long term (current) use of oral hypoglycemic drugs; Z87.891 Personal history of nicotine dependence
CPT/HCPCS: 36415; 71046; 72170; 80053; 80069; 82550; 82962; 83605; 83735; 83880; 84484; 85025; 85610; 86140; 87040; 87635; 94640; 96361; 96374; 96375; 97110; 97161; 97530; 99284; C9803; G0378; C9113; J2405; J7613